=== PATIENT | female | born 1985 | race Two or more races ===

== ENCOUNTER 2020-02-18 01:42 | Emergency (ER) | payer SELFPAY ==
[~2020-02-18] VITALS: Ht 154.9 cm; Wt 65.0 kg
--- NOTE | 2020-02-18 02:23 | NUR ---
PATIENT INTERVIEW COMPLETED USING CLIENT EXPERIENCE ADMINISTRATOR [id number]: PATIENT STATED THAT SHE CAME TO THE HOSPITAL BECAUSE SHE "FEELS ANGRY" AND STARTED TEARING UP HER APARTMENT. PATIENT DENIES HI AT THIS TIME. ADMITS TO SI WITH PLAN TO "CLEAN HOME, WORK IN WORK". PATIENT STATED THAT SHE COULD POSSIBLY BE . DENIES FEVER, ADMITS TO COUGH LAST NIGHT. PATIENT DID NOT HAVE A SPONTANOUS COUGH DURING INTERVIEW. SPOKE WITH PROVIDER. PATIENT WILL BE PLACED ON LEGAL HOLD STARTING TIME @ 4435
[2020-02-18 02:44] LABS: BASOPHILS # (AUTO) 0.05 x10^3/uL (0-0.1); BASOPHILS % (AUTO) 1 % (0-1); EOSINOPHILS # (AUTO) 0.28 x10^3/uL (0-0.4); EOSINOPHILS % (AUTO) 4 % (1-7); LYMPHOCYTES # (AUTO) 2.24 x10^3/uL (1-3.4); LYMPHOCYTES % (AUTO) 29 % (22-44); MD NO; MEAN CORPUSCULAR HEMOGLOBIN 25.8 pg (27.0-34.8); MEAN CORPUSCULAR HGB CONC 32.7 g/dL (32.4-35.8); MEAN CORPUSCULAR VOLUME 78.8 fL (80-100); MEAN PLATELET VOLUME 8.1 fL (7.4-10.4); MONOCYTES # (AUTO) 0.63 x10^3/uL (0.2-0.8); MONOCYTES % (AUTO) 8 % (2-9); NEUTROPHILS # (AUTO) 4.56 x10^3/uL (1.8-6.8); NEUTROPHILS % (AUTO) 59 % (42-75); PLATELET COUNT 393 x10^3/uL (130-400); RED BLOOD COUNT 4.36 x10^6/uL (3.82-5.3); RED CELL DISTRIBUTION WIDTH 19.3 % (9.6-15.2)
[2020-02-18 02:51] LABS: ALBUMIN 3.4 g/dL (3.4-5.0); ANION GAP 9 mmol/L (5-15); CALCIUM 8.6 mg/dL (8.5-10.1); CHLORIDE 107 mmol/L (98-107)
[2020-02-18 02:57] LABS: ALANINE AMINOTRANSFERASE 26 U/L (12-78); ALKALINE PHOSPHATASE 65 U/L (45-117); BILIRUBIN,TOTAL 0.5 mg/dL (0.2-1.0); CREATININE 1.01 mg/dL (0.55-1.02); TOTAL PROTEIN 7.6 g/dL (6.4-8.2)
[2020-02-18 03:00] LABS: SALICYLATE LEVEL < 1.7 mg/dL (2.8-20.0)
[2020-02-18 03:20] LABS: FREE T4 (FREE THYROXINE) 1.37 ng/dL (0.76-1.46)
--- NOTE | 2020-02-18 03:30 | NUR ---
PATIENT RESTING IN BED, EVEN-UNLABORED RESPIRATIONS. NO NOTED NEEDS AT THIS TIME. WILL CONTINUE TO MONITOR.
--- NOTE | 2020-02-18 04:39 | NUR ---
PATIENT RESTING IN BED, NO NOTED NEEDS AT THIS TIME. WILL CONTINUE TO MONITOR.
--- NOTE | 2020-02-18 05:55 | NUR ---
REPORT FROM MORAIMA PINO. PT RESTING. EVEN RISE AND FALL OF CHEST OBSERVED. ROOM SECURED.
--- NOTE | 2020-02-18 05:56 | NUR ---
report given to александр mayer
--- NOTE | 2020-02-18 06:45 | NUR ---
ADMITTING ATTEMPTED TO GET PTS CORRECT NAME. PT SAID HER NAME IS SHIRA AND SHE HAS NO LAST NAME AND HER BIRTHDAY IS TODAY. MD UPDATED WITH THIS INFORMATION. PT RSSTING WITH EYES CLOSED. ROOM SECURED. SITTE REQUESTED FROM HOUSE SUP. UA STILL NEEDED
--- NOTE | 2020-02-18 07:01 | NUR ---
RECEIVED REPORT FROM AME MULLIGAN RN. PT RESTING ON ANICETOCRICKET. ALXE. ROOM SECURED. NO SITTER AT BEDSIDE. THIRD MILLER NOTIFIED. PT TO BE MOVED TO ROOM 3 ONCE AVAILABLE FOR SITTER PURPOSES.
--- NOTE | 2020-02-18 07:27 | NUR ---
PT UNABLE TO MOVE TO ROOM 3 A THIS TIME. SITTER PROVIDED. PT RESTING ON GURNEY. NADN. ROOM REMAINS SECURE. SITTER AWARE OF NEED FOR UA. UA CUP LEFT W/ SITTER.
--- NOTE | 2020-02-18 07:40 | NUR ---
ATTEMPTED TO GET PT'S FIRST AND LAST NAME WELL OF W/O SUCCESS. WHEN ASKING PT HER NAME STATES IT IS SHIRA. THIS RN ASKED PT HOW SHE SPELT HER NAME. PT RESPONSE "I DON'T KNOW". ASKED PT IF SHE KNEW WHAT HER BIRTHDAY IS AND SHE SAID YES AND WHEN ASKED WHAT HER BIRTHDATE WAS PT RESPONSE "I DON'T KNOW". PT REFUSING TO MAKE EYE CONTACT. ASKED PT IF SHE NEEDED TO USE RESTROOM. PT DENIES NEED FOR RESTROOM AT THIS TIME. PT PROVIDED W/ CUP OF WATER.
--- NOTE | 2020-02-18 07:55 | NUR ---
BREAKFAST TRAY PROVIDED FOR PT.
--- NOTE | 2020-02-18 08:59 | NUR ---
PT RESTING ON GURROBB. ALEX. SITTER REMAINS AT BEDSIDE. ROOM REMAINS SECURE. PT CONTINUES TO REFUSE TO ANSWER QUESTIONS. PT NOTED TO HAVE BLANKET BUNDLED UP LIKE SHE IS HOLDING A BABY. PT CRADLING BABY AND STARING AT IT AND SMILING.
--- NOTE | 2020-02-18 10:50 | NUR ---
UA COLLECTED, LABELED AND WALKED TO LAB.
--- NOTE | 2020-02-18 10:55 | NUR ---
ERP DR. SIERRA NOTIFIED OF PT TEMP. NEW ORDER FOR TYLENOL 650 MG PO ONCE.
[2020-02-18] MEDS ORDERED: ACETAMINOPHEN 325 MG TABLET ONE ×2 (10:56→13:21)
--- NOTE | 2020-02-18 10:58 | NUR ---
PT REFUSED TYLENOL FOR FEVER. PT EDUCATED ON NEED TO REDUCE FEVER. PT CONTINUES TO REFUSE TYLENOL DESPITE EDUCATION.
[2020-02-18] MEDS ORDERED: ACETAMINOPHEN 325 MG TABLET PO ONE (11:00)
[2020-02-18 11:19] LABS: AMPHETAMINE SCREEN, URINE Negative (Negative); CANNABINOID SCREEN, URINE Negative (Negative); COCAINE SCREEN, URINE Negative (Negative); METHADONE SCREEN, URINE Negative (Negative); OPIATE SCREEN, URINE Negative (Negative)
[2020-02-18 11:21] LABS: BARBITURATE SCREEN, URINE Negative (Negative); BENZODIAZEPINE SCREEN, URINE Negative (Negative)
--- NOTE | 2020-02-18 11:28 | NUR ---
SPOKE W/ ERP DR. SIERRA IN REGARDS TO PT TEMP AND SOURCE OF TEMP CAUSE. NEW ORDER FOR UA PER ERP.
[2020-02-18 11:56] LABS: MICROSCOPIC INDICATED
--- NOTE | 2020-02-18 12:41 | NUR ---
PT NOTED TO HAVE POSITIVE NITRATES IN URINE. ERP DR. SIERRA TO BE NOTIFIED.
--- NOTE | 2020-02-18 12:48 | NUR ---
LUNCH BREAK NOTE: ANTIBIOTICS REQUESTED OF DR. SIERRA FOR POSSIBLE UTI.
[2020-02-18] MEDS ORDERED: HALOPERIDOL 5 MG TABLET PO PRN (13:00)
[2020-02-18] MEDS ORDERED: HALOPERIDOL 5 MG TABLET ONE (13:21)
--- NOTE | 2020-02-18 13:28 | NUR ---
PT PROVIDED W/ SI LUNCH TRAY. PT MEDICATED PER SEP. REFUSED TYLENOL. TEMP NOTED TO BE 99.1
--- NOTE | 2020-02-18 13:29 | NUR ---
PER ERP DR. SIERRA NO NEED TO START PO ABX AT THIS TIME.
--- NOTE | 2020-02-18 13:55 | NUR ---
REPORT GIVEN TO ALVAREZ ROSS.
--- NOTE | 2020-02-18 14:44 | NUR ---
Pt resting in bed with eyes closed, resp even and unlabored, NADN. Room is secured, sitter within eyesight of pt, all safety measures observed.
--- NOTE | 2020-02-18 15:17 | NUR ---
Report recieved from ALVAREZ Marshall. Plan of care discussed. Patient changed into gown with need for assistance from secuirty, belongings placed in labeled bag and placed in locked storage. Room secured, sitter at door for safety.
--- NOTE | 2020-02-18 15:36 | NUR ---
Mis, psych RECORDING STUDIO INTERN in room for eval.
[2020-02-18] MEDS ORDERED: HALOPERIDOL 5 MG/ML ONE (16:03)
[2020-02-18] MEDS: HALOPERIDOL 5 MG/ML IM PRN (16:06)
--- NOTE | 2020-02-18 16:07 | NUR ---
Patient began yelling and pacing in room stating she needs to go home. Patient educted that she is on a legal hold and needs to stay here. With help from ALVAREZ Hinkle and ALVAREZ Smiley, patient medicated per emar for agitation/distress
--- NOTE | 2020-02-18 16:16 | NUR ---
PER PARDEEP, PT WAS PICKED UP AT [id number], [place] [facility]? ATTEMPTED TO CALL. LEFT MESSAGE
--- NOTE | 2020-02-18 17:25 | NUR ---
Patient resting in bed, respirations even and unlabored. Sitter at door for safety, room secured. Call light in reach, monitoring in place. Patient is to be admitted Addendum: 02/18/20 at 1829 by CHEO Correction, this patient is not to be admitted at this time. Wrong note on patient
--- NOTE | 2020-02-18 18:29 | NUR ---
Patient resting in bed, respirations even and unlabored. Sitter at door for safety, room secured. Call light in reach, monitoring in place.
--- NOTE | 2020-02-18 18:51 | NUR ---
REPORT FROM JLUIS PINO ASSUMING CARE OF PT
--- NOTE | 2020-02-18 20:06 | NUR ---
PT STILL SLEEPING ON [facility] SITTER IN VIEW FOR SAFETY
--- NOTE | 2020-02-18 21:44 | NUR ---
PT STILL RESTING RESP EVEN AND UNLABORED NADN. SITTER IN VIEW
--- NOTE | 2020-02-18 22:55 | NUR ---
PT RESTING STILL EYES CLOSED ALEX LEONARD IN [facility] FOR SAFETY
--- NOTE | 2020-02-18 23:30 | NUR ---
PT RESTING NO NEEDS AT THIS TIME, RESP EVEN AND UNLABORED ALEX SITTER IN HALLWAY FOR SAFETY
--- NOTE | 2020-02-19 00:45 | NUR ---
PT RESTING ON TIKA JOHNSON. RESP EVEN AND UNLABORED
[2020-02-19] MEDS ORDERED: DIPHENHYDRAMINE 25 MG CAPSULE ONE (01:29)
[2020-02-19] MEDS ORDERED: DIPHENHYDRAMINE 25 MG CAPSULE PO ONE (01:30)
--- NOTE | 2020-02-19 01:37 | NUR ---
PT AWAKE, ASSESSMENT COMPLETED, PT ABLE TO STATE HER NAME IS "SHIRA" WHEN ASKED ABOUT HER BIRTHDAY PT STS "TODAY" PT KNOWS IT IS 2019 AND THAT ITS EITHER END OF JANUARY OR FEBRUARY BUT PT DOES NOT KNOW WHERE SHE IS HOWEVER SAYS SHE IS HERE BECAUSE OF VOICES. SHE DENIES SI/ HI SHE STATES VOICES JUST TALK AND TALK AND SAY "SHIRA SILVA". PT C/O ITCHING TO R BACK PT MEDICATED PER SEP FOR THIS AND IS CALM AND COOPERATIVE AT THIS TIME. SITTER REMAINS IN HALLWAY FOR SAFETY AND MONITORING
--- NOTE | 2020-02-19 02:40 | NUR ---
PT RESTING SITTER IN JAMES FOR SAFETY
--- NOTE | 2020-02-19 04:08 | NUR ---
PT RESTING RESP EVEN AND UNLABORED. SITTER IN SIGHT NO NEEDS AT THIS TIME
--- NOTE | 2020-02-19 05:21 | NUR ---
PT AWAKE IN ROOM SITTING ON BED ASKING "I GO HOME NOW" RN ASKED PT WHERE SHE LIVES AND ORIENTATION QUESTIONS, PT ABLE TO SAY HER NAME IS SHIRA BIRTHDAY IS TODAY BUT DOES NOT KNOW WHERE WE ARE BUT KNOWS WHY SHE IS HERE
[2020-02-19] MEDS: HALOPERIDOL 5 MG/ML IM PRN ×2 (05:55→13:00)
[2020-02-19] MEDS ORDERED: HALOPERIDOL 5 MG/ML ONE ×2 (06:09→12:54)
--- NOTE | 2020-02-19 07:00 | NUR ---
Mariely al in [facility] - 02/19/20 at 1154 by JABARI RE REPORT ARIS RESTING SITTER IN THE JAMES
--- NOTE | 2020-02-19 07:00 | NUR ---
REC BS REPORT PT UP IN ROOM SITTER IN THE JAMES
--- NOTE | 2020-02-19 09:00 | NUR ---
[facility]
--- NOTE | 2020-02-19 09:02 | NUR ---
Break RN note: Pt ambulatory out of her room and down the isaac. Pt advised that she must remain in her room unless accompanied by a staff member. Pt requesting water. Pt ambulatory back to her room. Pt provided with water. Room remains secured, sitter within eyesight of pt, all safety measures observed.
--- NOTE | 2020-02-19 10:00 | NUR ---
REDIRECTING PT BACK TO THE ROOM MULTI TIME PT COOPERATES
--- NOTE | 2020-02-19 11:53 | NUR ---
PT CONTINUES TO REFUSE MEDS
--- NOTE | 2020-02-19 15:04 | NUR ---
christal blue and to the bs per pt has long standing psy hx christal to talk with WENDI
[2020-02-19] MEDS ORDERED: LORazepam 1MG TABLET PO PRN (15:30)
[2020-02-19] MEDS: CITALOPRAM 10 MG TABLET PO SCH (15:30)
--- NOTE | 2020-02-19 15:49 | NUR ---
BREAK RN:PATIENT MEDICATED PER EMAR, COMPLIANT AND TOLERATED WELL
--- NOTE | 2020-02-19 17:01 | NUR ---
PACKET FAXED TO [facility]
--- NOTE | 2020-02-19 18:55 | NUR ---
REPORT FROM ALVAREZ MILLARD. PT CARE RESPONSIBLITIES ASSUMED. SITTER CONTINUES IN DIRECT LINE OF SIGHT.
[2020-02-19] MEDS: TRAZODONE 100MG TABLET PO SCH (21:00)
[2020-02-19] MEDS: RISPERIDONE 1 MG TABLET PO SCH (21:00)
--- NOTE | 2020-02-19 23:48 | NUR ---
PT SLEEPING IN BED, NAD NOTED, SITTER IN DIRECT LINE OF SIGHT.
--- NOTE | 2020-02-20 01:15 | NUR ---
PT CONTINUES SLEEPING, NAD NOTED, SITTER CONTINUES IN DIRECT LINE OF SIGHT.
--- NOTE | 2020-02-20 04:22 | NUR ---
PT CONTINUES SLEEPING SOUNDLY. NADN. SITTER IN DIRECT LINE OF SIGHT.
--- NOTE | 2020-02-20 06:44 | NUR ---
PT CONTINUES SLEEPING, SITTER CONTINUES IN DIRECT LINE OF SIGHT. NAD NOTED.
--- NOTE | 2020-02-20 06:53 | NUR ---
BEDSIDE REPORT FROM JLUIS PINO. PT SLEEPING IN [facility] WITH SITTER AT BEDSIDE. [facility] TRANSFER.
--- NOTE | 2020-02-20 07:15 | NUR ---
requested hospital bed
--- NOTE | 2020-02-20 07:52 | NUR ---
PT GIVEN BREAKFAST TRAY, PT DECLINING FOOD AT THIS TIME. LEFT TRAY AT BEDSIDE. BEDSIDE TRAY REMOVED FOR SAFETY. PT RESTING IN GURNEY WITH SITTER AT BEDSIDE. DENIES PHYSICAL COMPLAINTS, SEE ASSESSMENT.
[2020-02-20] MEDS ORDERED: CITALOPRAM 20 MG TABLET ONE (08:04)
[2020-02-20] MEDS ORDERED: RISPERIDONE 2 MG TABLET ONE (08:04)
[2020-02-20] MEDS: RISPERIDONE 1 MG TABLET PO SCH ×2 (08:12→20:46)
[2020-02-20] MEDS: CITALOPRAM 10 MG TABLET PO SCH (08:12)
--- NOTE | 2020-02-20 08:13 | NUR ---
PT MEDICATED PER MAR, CALM AND COOPERATIVE AT THIS TIME.
--- NOTE | 2020-02-20 09:10 | NUR ---
PT SLEEPING IN GURNEY WITH SITTER AT BEDSIDE, CALM AND COOPERATIVE AT THIS TIME. HOSPITAL BED STILL NOT HERE
--- NOTE | 2020-02-20 10:03 | NUR ---
[facility] CALLED AGAIN FOR BED, VM FULL. WILL TRY AGAIN
--- NOTE | 2020-02-20 11:03 | NUR ---
PT RESTING IN GURNEY WITH SITTER AT BEDSIDE, NO NEEDS AT THIS TIME. LUNCH TRAY ORDERED.
--- NOTE | 2020-02-20 12:14 | NUR ---
TASK RN: WENDI ACOSTA TALKING WITH PT AND EVALUATING HOW SHE IS FEELING TODAY
--- NOTE | 2020-02-20 12:57 | NUR ---
PT GIVEN LUNCH TRAY
--- NOTE | 2020-02-20 13:15 | NUR ---
REPORT RECEIVED FROM EVA PINO.
--- NOTE | 2020-02-20 14:08 | NUR ---
PT RESTING IN [facility]. RESPS EVEN AND UNLABORED. SITTER MONITORING FROM HALLWAY FOR SAFETY. ROOM REMAINS SECURE.
--- NOTE | 2020-02-20 14:11 | NUR ---
REQUESTED HOSPITAL BED AT THIS TIME AGAIN.
--- NOTE | 2020-02-20 14:37 | NUR ---
HOSPITAL BED IN ROOM. PT RESTING IN HOSPITAL BED. PT'S AOX4. RESPS EVEN AND UNLABORED. SITTER MONITORING FROM HALLWAY FOR SAFETY. ROOM REMAINS SECURE.
--- NOTE | 2020-02-20 16:02 | NUR ---
PT SLEEPING IN HOSPITAL BED. RESPS EVEN AND UNLABORED. SITTER MONITORING FROM HALLWAY FOR SAFETY. ROOM REMAINS SECURE.
--- NOTE | 2020-02-20 17:06 | NUR ---
DIET TRAY ORDERED AT THIS TIME.
--- NOTE | 2020-02-20 17:45 | NUR ---
PT AMB TO BR AND BACK TO ROOM WITH STEADY GAIT.
--- NOTE | 2020-02-20 17:55 | NUR ---
DINNER TRAY PROVIDED AT THIS TIME.
--- NOTE | 2020-02-20 18:57 | NUR ---
RECEIVED BEDSIDE REPORT FROM ALVAREZ PARDO. PT SITTING UP IN BED, NO SIGNS OF DISTRESS, REMAINS IN VIEW OF THE SITTER. WILL CONTINUE TO MONITOR.
[2020-02-20 19:29] VITALS: BP 108/74
--- NOTE | 2020-02-20 19:31 | NUR ---
PT DENIES SI/HI. STATES SHE DOESN'T KNOW WHY SHE'S HERE OTHER THAN SHE "ARGUED WITH HER TOYS YESTERDAY." DENIES ANY COMPLAINTS, ALL NEEDS MET AT THIS TIME, REMAINS IN VIEW OF THE SITTER.
[2020-02-20] MEDS ORDERED: TRAZODONE 100MG TABLET ONE (20:13)
[2020-02-20] MEDS: TRAZODONE 100MG TABLET PO SCH (20:46)
--- NOTE | 2020-02-20 21:36 | NUR ---
PT SLEEPING, RESPIRATIONS EVEN AND UNLABORED, REMAINS IN VIEW OF THE SITTER.
--- NOTE | 2020-02-20 22:35 | NUR ---
[facility], RN, MD ORTIZ.
--- NOTE | 2020-02-20 22:47 | NUR ---
PT UPDATED ON POC, ALL QUESTIONS ANSWERED AT THIS TIME.
== END 2020-02-21 01:10 ==
LOC: ED 02-19 14:41
DX: F32.1 Major depressive disorder, single episode, moderate (principal); F23 Brief psychotic disorder; F22 Delusional disorders
CPT/HCPCS: 36415; 80053; 80307; 81001; 84439; 84443; 84703; 85025; 87077; 87086; 87186; 96372; 99285; J1630; Q0163

== ENCOUNTER 2020-05-09 02:02 | Emergency (ER) | payer SELFPAY ==
[~2020-05-09] VITALS: Ht 162.6 cm; Wt 110.0 kg
--- NOTE | 2020-05-09 02:20 | NUR ---
34 year old female to [facility] for abdominal pain x 1 month and bilateral flank pain. LMP unknown, G1, P1, denies dysuria, vag bleeding, diarrhea, vomiting, indigestion, fever, chills, or body aches. She also denies PMHx. VSS.
--- NOTE | 2020-05-09 02:26 | NUR ---
phone number No name given
[2020-05-09 02:48] LABS: BASOPHILS % (AUTO) 1 % (0-1); EOSINOPHILS % (AUTO) 2 % (1-7); LYMPHOCYTES % (AUTO) 14 % (22-44); MD NO; MEAN CORPUSCULAR HEMOGLOBIN 24.2 pg (27.0-34.8); MEAN CORPUSCULAR HGB CONC 32.4 g/dL (32.4-35.8); MEAN PLATELET VOLUME 7.6 fL (7.4-10.4); MONOCYTES % (AUTO) 8 % (2-9); NEUTROPHILS % (AUTO) 75 % (42-75); PLATELET COUNT 397 x10^3/uL (130-400); RED CELL DISTRIBUTION WIDTH 16.1 % (9.6-15.2)
[2020-05-09 02:59] LABS: ALANINE AMINOTRANSFERASE 22 U/L (12-78); ALBUMIN 3.2 g/dL (3.4-5.0); ANION GAP 6 mmol/L (5-15); CALCIUM 8.4 mg/dL (8.5-10.1); CHLORIDE 105 mmol/L (98-107); CREATININE 1.07 mg/dL (0.55-1.02)
[2020-05-09 03:04] LABS: ALKALINE PHOSPHATASE 106 U/L (45-117); BILIRUBIN,TOTAL 0.2 mg/dL (0.2-1.0); TOTAL PROTEIN 7.3 g/dL (6.4-8.2)
[2020-05-09 03:06] LABS: MICROSCOPIC AUTO
[2020-05-09 04:08] VITALS: BP 132/88
== END 2020-05-09 04:11 | disposition home or self-care (01) ==
LOC: ED 02:57
DX: N30.00 Acute cystitis without hematuria (principal); R73.9 Hyperglycemia, unspecified; R10.31 Right lower quadrant pain; R10.32 Left lower quadrant pain; R11.0 Nausea
CPT/HCPCS: 36415; 80053; 81001; 83690; 84703; 85025; 87077; 87086; 87186; 99283

== ENCOUNTER 2020-10-09 17:58 | Emergency (ER) | payer OTHER ==
[~2020-10-09] VITALS: Ht 162.6 cm; Wt 101.0 kg
--- NOTE | 2020-10-09 18:15 | NUR ---
PT BIB [facility] [place]. PER [employer] POLICE THE PT WAS WANDERING AROUND THE AIRPPORT SAYING SHE WANTED TO GO TO [facility]. PT TOLD EMS SHE WAS HAVING ABD PAIN AND NAUSEA. PT A&O TO PERSON AND SITUATION (KNOWS SHE IS IN THE HOSPITAL) ONLY. Addendum: 10/10/20 at 1637 by SELINA PT CAME OUT OF ROOM YELLING, SLAMMED DOOR AND AGITATED. MEDICATED PER ORDERS W ZIPRASIDONE.
[2020-10-09 18:43] LABS: BASOPHILS % (AUTO) 0 % (0-1); EOSINOPHILS % (AUTO) 2 % (1-7); LYMPHOCYTES % (AUTO) 15 % (22-44); MEAN CORPUSCULAR HEMOGLOBIN 23.3 pg (27.0-34.8); MEAN CORPUSCULAR HGB CONC 31.9 g/dL (32.4-35.8); MEAN PLATELET VOLUME 7.7 fL (7.4-10.4); MONOCYTES % (AUTO) 8 % (2-9); NEUTROPHILS % (AUTO) 75 % (42-75); PLATELET COUNT 381 x10^3/uL (130-400); RED BLOOD COUNT 4.68 x10^6/uL (3.82-5.3); RED CELL DISTRIBUTION WIDTH 18.9 % (9.6-15.2)
[2020-10-09 18:49] LABS: MD NO
--- NOTE | 2020-10-09 18:49 | NUR ---
BEDSIDE REPORT FROM STUART PINO, PT CARE TRANSFERRED AT THIS TIME. PT NAD, UP TO RESTROOM AT THIS TIME. AMBULATES WITH A SMOOTH AND STEADY GAIT, DENIES ADDITIONAL QUESTIONS OR NEEDS SITTER IN LINE OF SIGHT, WCSAM.
[2020-10-09 18:50] LABS: ALBUMIN 3.4 g/dL (3.4-5.0); ANION GAP 9 mmol/L (5-15); CALCIUM 8.6 mg/dL (8.5-10.1); CHLORIDE 102 mmol/L (98-107)
[2020-10-09 18:55] LABS: ALANINE AMINOTRANSFERASE 31 U/L (12-78); ALKALINE PHOSPHATASE 110 U/L (45-117); BILIRUBIN,TOTAL 0.2 mg/dL (0.2-1.0); CREATININE 0.97 mg/dL (0.55-1.02); TOTAL PROTEIN 7.3 g/dL (6.4-8.2)
[2020-10-09 18:56] LABS: SALICYLATE LEVEL < 1.7 mg/dL (2.8-20.0)
--- NOTE | 2020-10-09 19:06 | NUR ---
pt unable to obtain urine sample at this time. nad, resting on gurney, will attempt to obtain urine sample again in 15 minutes. wcbahman.
--- NOTE | 2020-10-09 20:09 | NUR ---
LATE ENTRY DUE TO CARE: DURING LAST HOUR RN COLLECTED BELONGINGS 2/2 BAGS AND PLACED IN LOCKER, UA OBTAINED AND SENT TO LAB, PT PLACED ON LEGAL, ROOM SECURED, SITTER IN LINE OF SIGHT, PT RESTING ON GURNEY CRYING, RN USED FAMILY NURSE PRACTITIONER SERVICES TO INFORM PT OF LEGAL AND PLAN OF CARE, PT BEGAN SCREAMING AND CRYING AFTER EXPLANATION COMPLETE. PT NAD, SITTER IN LINE OF SIGHT, RENE. RN TO ATTEMPT TO REACH FAMILY FOR MED REC.
[2020-10-09 20:18] LABS: MICROSCOPIC AUTO
[2020-10-09] MEDS ORDERED: LORazepam 1MG TABLET ONE (20:19)
[2020-10-09 20:27] LABS: AMPHETAMINE SCREEN, URINE Negative (Negative); BARBITURATE SCREEN, URINE Negative (Negative); BENZODIAZEPINE SCREEN, URINE Negative (Negative); CANNABINOID SCREEN, URINE Negative (Negative); COCAINE SCREEN, URINE Negative (Negative); METHADONE SCREEN, URINE Negative (Negative); OPIATE SCREEN, URINE Negative (Negative)
[2020-10-09] MEDS ORDERED: LORazepam 1MG TABLET PO ONE (20:30)
[2020-10-09] MEDS ORDERED: ZIPRASIDONE 20 MG INJ IM ONE ×4 (20:51→22:02)
--- NOTE | 2020-10-09 21:00 | NUR ---
late entry d/t pt care: pt becoming increasingly aggitated, walked out of room refusing to stop despite attempts at staff redirection, pt shoving staff out of path attempting to run around er, pt making laps yelling at RN "No, No, No". pt body language aggressive towards staffing, lunging towards them. pt assisted back to room with security, pt placed on spo2/bp/ecg monitoring and medicated per mar. erp aware of situation, verbal orders received, wctm.
--- NOTE | 2020-10-09 22:18 | NUR ---
pt still screaming out on marietta, states she has to pee, rn offered both pure wick and bed sood, pt refused both, and then continued to yell at rn "i have to pee, i have to pee, i have to pee" pt then proceded to threatening staff, shanda. L2K
[2020-10-09] MEDS ORDERED: CEFDINIR 300 MG CAPSULE PO ONE (22:30)
--- NOTE | 2020-10-09 23:00 | NUR ---
late entry d/t pt careL pt taken to shower, supervised by rn, pt nad, changed into clean clothing, moved to hospital bed instead of gurney, provided water for comfort, lights dimmed for comfort, pt back to room after shower, sitter in line of sight, room secured. wctm. L2K
[2020-10-09] MEDS ORDERED: CEFDINIR 300 MG CAPSULE ONE (23:05)
[2020-10-09] MEDS ORDERED: FOSFOMYCIN 3 GM PACKET ONE (23:38)
[2020-10-10] MEDS ORDERED: FOSFOMYCIN 3 GM PACKET PO ONE
--- NOTE | 2020-10-10 | NUR ---
pt appears more comfortable at this time. resting on hospital bed, provided snacks for comfort, medicated per mar, nad, denies additional questions or needs at this time, room secured, sitter in line of sight, wctm. L2K
--- NOTE | 2020-10-10 00:48 | NUR ---
TP: faxed pt packet to psych facilities.
--- NOTE | 2020-10-10 01:23 | NUR ---
Floresita from [facility] states that with patients insurance the patient would have to pay out of pocket to go to their hospital.
--- NOTE | 2020-10-10 01:38 | NUR ---
pt resting on gurney, nad, eyes closed, even and unlabored respirations, sitter in line of sight, room secured. wctm. L2K
--- NOTE | 2020-10-10 01:45 | NUR ---
U denied referral, inappropriate insurance coverage.
--- NOTE | 2020-10-10 03:08 | NUR ---
MANUFACTURING ENGINEER: [facility] CALLED AND STATED THEY WILL NOT BE TAKING ANY NEW PATIENT'S TONIGHT BUT THEY WILL RE-EVAL IN THE AM AND CALL US BACK.
--- NOTE | 2020-10-10 03:11 | NUR ---
pt resting on hospital bed, nad, appears comfortable, briefly up and ambulated to restroom with a smooth and steady gait the back to bed, lights off for comfort, even and unlabored respirations, sitter in line of sight, room secured, wctm. L2K
--- NOTE | 2020-10-10 04:38 | NUR ---
pt resting on hospital bed, nad, appears comfortable, room secured, sitter in line of sight, no other changes in condition, meal tray ordered, wctm. L2K
--- NOTE | 2020-10-10 06:39 | NUR ---
pt resting on marietta, damon, no change in condition, sitter in line of sight, room secured. wctm.
--- NOTE | 2020-10-10 06:39 | NUR ---
[facility] callled, they do not take pts insurance so will not take her.
--- NOTE | 2020-10-10 06:41 | NUR ---
bedside report to Axel PINO, pt care transferred at this time.
[2020-10-10] MEDS ORDERED: DIPHENHYDRAMINE 50 MG/ML, 1ML ONE (06:52)
[2020-10-10] MEDS ORDERED: HALOPERIDOL 5 MG/ML ONE ×2 (06:52→18:44)
[2020-10-10] MEDS ORDERED: LORazepam 2 MG/ML, 1ML ONE (06:53)
[2020-10-10] MEDS: HALOPERIDOL 5 MG/ML IM PRN ×2 (06:56→18:46)
[2020-10-10] MEDS: LORazepam 2 MG/ML, 1ML IM PRN (06:57)
[2020-10-10] MEDS ORDERED: DIPHENHYDRAMINE 50 MG/ML, 1ML IM ONE (07:00)
--- NOTE | 2020-10-10 07:05 | NUR ---
BEDSIDE REPORT RECEIVED FROM ALVAREZ ORNELAS FOR TRANSFER OF PATIENT CARE. PATIENT AMBULATED TO BATHROOM WITH STEADY GAIT, AFTER USING BATHROOM PATIENT TRIED LEAVING UNABLE TO BE REDIRECTED BY SITTER. NOC RN CALLED SECURITY, ANGELI NOTIFIED, MEDICATION ORDERED AND GIVEN. PATIENT NOW RESTING IN HOSPITAL BED, SUICIDE PRECAUTIONS IN PLACE, SITTER IN DOORWAY.
--- NOTE | 2020-10-10 07:39 | NUR ---
PATIENT AMBULATED TO BATHROOM WITH STEADY GAIT, ASSISTED BACK TO ROOM BY SITTER, PATIENT COOPERATIVE, SUICIDE PRECAUTIONS IN PLACE.
--- NOTE | 2020-10-10 08:18 | NUR ---
BREAKFAST TRAY PROVIDED.
--- NOTE | 2020-10-10 08:32 | NUR ---
PATIENT AMBULATED TO BATHROOM WITH STEADY GAIT AND DIRECTED BACK TO ROOM BY SITTER.
--- NOTE | 2020-10-10 10:02 | NUR ---
PATIENT LAYING IN HOSPITAL BED WITH EYES CLOSED, RESP EVEN AND UNLABORED, SUICIDE PRECAUTIONS IN PLACE, SITTER IN DOORWAY.
--- NOTE | 2020-10-10 11:23 | NUR ---
LUNCH TRAY ORDERED.
--- NOTE | 2020-10-10 12:10 | NUR ---
PEANUT BUTTER AND JELLY SANDWICH PROVIDED TO PATIENT, SUICIDE PRECAUTIONS IN PLACE, SITTER IN LINE OF SIGHT.
--- NOTE | 2020-10-10 12:21 | NUR ---
LUNCH TRAY PROVIDED TO PATIENT.
--- NOTE | 2020-10-10 13:13 | NUR ---
REPORT FROM WILLI
--- NOTE | 2020-10-10 13:42 | NUR ---
MEDICATIONS REQUEST FROM PHARMACY, PT LYING ON GURNEY. SITTER PRESENT
[2020-10-10] MEDS: RISPERIDONE 1 MG TABLET PO SCH ×3 (13:56→21:10)
[2020-10-10] MEDS: CITALOPRAM 10 MG TABLET PO SCH ×2 (13:56→21:10)
--- NOTE | 2020-10-10 14:10 | NUR ---
PT REFUSING TO TAKE MEDS, PT STATES "THE SALES SPECIALIST DOESNT WANT ME TO TAKE MEDS". RN EDUCATED ABOUT MEDS, PT STILL REFUSING
--- NOTE | 2020-10-10 15:30 | NUR ---
PT AMBULATED TO BATHROOM. SITTER PRESENT
[2020-10-10] MEDS ORDERED: ZIPRASIDONE 20 MG INJ IM ONE (16:30)
--- NOTE | 2020-10-10 17:34 | NUR ---
MEAL TRAY ORDERED. SITTER PRESENT. PT IS CALM AND COOPERATIVE
--- NOTE | 2020-10-10 18:01 | NUR ---
PT GIVEN MEAL TRAY.
--- NOTE | 2020-10-10 18:34 | NUR ---
TRIED TO ENCOURAGE PT TAKE ORAL MEDS, REFUSING AT THIS TIME
--- NOTE | 2020-10-10 18:48 | NUR ---
PT STARTED SCREAMING IN HALLWAY UNCONSOLIBLE AND NOT GOING BACK TO ROOM. SECURITY ESCORTED PATIENT TO ROOM. MEDICATED WITH HALOPERIDOL PER ORDERS. SECURITY AT BEDSIDE FOR SAFETY.
--- NOTE | 2020-10-10 18:54 | NUR ---
REPORT FROM ANABEL PINO. PT IN BED AND STILL SCREAMING BUT NOT ATTEMPTING TO LEAVE ROOM. SITTER IN VIEW OF PT.
--- NOTE | 2020-10-10 18:56 | NUR ---
REPORT TO ESE
--- NOTE | 2020-10-10 19:58 | NUR ---
PT RESTING WITH NO NEEDS AT THIS TIME. SITTER IN VIEW OF PT
--- NOTE | 2020-10-10 20:53 | NUR ---
REPORT TO JOVANNA PINO
[2020-10-10] MEDS ORDERED: TRAZODONE 100MG TABLET PO SCH (21:00)
[2020-10-10] MEDS ORDERED: RISPERIDONE 2 MG TABLET ONE (21:05)
[2020-10-10] MEDS ORDERED: TRAZODONE 100MG TABLET ONE (21:05)
[2020-10-10] MEDS ORDERED: CITALOPRAM 20 MG TABLET ONE (21:05)
--- NOTE | 2020-10-10 21:16 | NUR ---
1ST CONTACT C PT. AMBULATORY TO RESTROOM C STEADY GAIT. MEDS PER MAR, TOLERATED WELL. SANDWICH & JUICE PROVIDED. DENIES ANY OTHER NEEDS. NAD. RR EVEN NON LABORED. SITTER OUTSIDE OF ROOM. WILL CTM.
--- NOTE | 2020-10-10 22:00 | NUR ---
PT AMBULATORY IN ROOM/HALLWAY. EASILY REDIRECTED BACK TO BED. NAD. SITTER OUTSIDE OF ROOM. WILL CTM.
--- NOTE | 2020-10-10 23:01 | NUR ---
PT TEARFUL IN ROOM/HALLWAY, REQUESTINIG BETSEY, STATES SHE NEEDS TO GET HER KEYS FOR HER DAUGHTER, ATTEMPTING TO REDIRECT PT BACK TO BED... SITTER REMAINS OUTSIDE OF ROOM. WILL ANISAM.
--- NOTE | 2020-10-11 | NUR ---
PT RESTING ON HOSPITAL BED, RR EVEN NON LABORED. SITTER OUTSIDE OF ROOM. WILL CTM.
--- NOTE | 2020-10-11 01:11 | NUR ---
PT AMBULATORY TO RESTROOM SEVERAL TIMES, STEADY GAIT. SITTER REMAINS OUTSIDE OF ROOM. WILL CTM.
[2020-10-11] MEDS ORDERED: HALOPERIDOL 5 MG/ML ONE (01:39)
[2020-10-11] MEDS: HALOPERIDOL 5 MG/ML IM PRN (01:44)
--- NOTE | 2020-10-11 01:45 | NUR ---
PT CLEANING THE BATHROOM DOOR, CRYING, USHERED BACK TO ROOM. GIVEN HALDOL IM PER SEP. SITTER OUT SIDE ROOM
--- NOTE | 2020-10-11 02:12 | NUR ---
PT RESTING ON HOSPITAL BED, RR EVEN NON LABORED, EYES OPEN. SITTER OUTSIDE OF ROOM. WILL CTM.
--- NOTE | 2020-10-11 03:08 | NUR ---
PT SLEEPING ON HOSPITAL BED, RR EVEN NON LABORED. NAD. SITTER OUTSIDE OF ROOM. WILL CTM.
--- NOTE | 2020-10-11 05:03 | NUR ---
bedside report from Mackenzie RN, pt care transferred to this rn at this time. nad, pt up pacing room and repeatedly walking to and from restroom. pt redirectable at this time. sitter in line of sight, room secured. wctm. L2K
--- NOTE | 2020-10-11 06:14 | NUR ---
pt sitting up on hospital bed, provided cheerios and milk for comfort, also provided new water cup with ice. pt denies additional needs at this time, crying and stating "i just want to go home". room secured, sitter in line of sight, shanda.
--- NOTE | 2020-10-11 06:54 | NUR ---
report to nicholas fountain, pt care transferred at this time.
--- NOTE | 2020-10-11 07:10 | NUR ---
REPORT REC'D FROM COORDINATOR VOLUNTEER SERVICES. PT SITTING UP IN BED, DECLINED ANY FOOD AT THIS TIME. SITTER AT DOOR.
[2020-10-11] MEDS ORDERED: HALOPERIDOL 5 MG TABLET ONE (07:30)
[2020-10-11] MEDS ORDERED: HALOPERIDOL 5 MG TABLET PO ONE (08:00)
[2020-10-11] MEDS ORDERED: RISPERIDONE 2 MG TABLET ONE ×2 (08:31→20:39)
[2020-10-11] MEDS ORDERED: CITALOPRAM 20 MG TABLET ONE (08:31)
--- NOTE | 2020-10-11 08:39 | NUR ---
MEAL TRAY DELIVERED. HALADOL CRUSHED AND PUT IN APPLE SAUCE.
[2020-10-11] MEDS: RISPERIDONE 1 MG TABLET PO SCH (09:21)
[2020-10-11] MEDS: CITALOPRAM 10 MG TABLET PO SCH (09:21)
--- NOTE | 2020-10-11 09:22 | NUR ---
MORNING MEDS CRUSHED AND PUT IN APPLESAUCE.
--- NOTE | 2020-10-11 10:40 | NUR ---
PT SLEEPING IN BED. SITTER AT DOOR.
--- NOTE | 2020-10-11 15:00 | NUR ---
REPORT FROM JANNY PINO
--- NOTE | 2020-10-11 15:39 | NUR ---
PT RESTING IN BED WATCHING TV. SI PRECAUTIONS IN PLACE, SITTER AT DOORWAY.
--- NOTE | 2020-10-11 17:00 | NUR ---
PT IN RESTING IN BED. SITTER AT DOORWAY, SI PRECAUTIONS IN PLACE.
--- NOTE | 2020-10-11 17:15 | NUR ---
mili damon and at bedside.
--- NOTE | 2020-10-11 18:33 | NUR ---
[facility] denied patient as they are not a provider for patients insurance.
--- NOTE | 2020-10-11 19:00 | NUR ---
pt standing in room. denies needs at this time sitter at doorway
[2020-10-11] MEDS: RISPERIDONE 2 MG TABLET PO SCH (20:42)
--- NOTE | 2020-10-11 20:46 | NUR ---
pt laying in gurney, resp even and unlabored. pt took pm medications, denying SI. sitter at doorway
--- NOTE | 2020-10-11 22:03 | NUR ---
BREAK RN: PT RESTING IN ROOM. SITTER AT DOOR. NO ACUTE DISTRESS NOTED. WILL CONTINUE TO MONITOR WHILE PRIMARY RN IS ON BREAK.
--- NOTE | 2020-10-11 22:25 | NUR ---
BREAK RN: REPORT GIVEN TO ALVAREZ JOLLEY
--- NOTE | 2020-10-11 23:21 | NUR ---
PT RESTING IN BED, RESP EVEN AND UNLABORED. SITTER AT DOORWAY
--- NOTE | 2020-10-12 00:44 | NUR ---
pt resting in gurney, resp even and unlabored. sitter at doorway
--- NOTE | 2020-10-12 01:45 | NUR ---
PT IN BATHTROOM DRY HEAVING OVER TOILET, ERP AWARE, PO ZOFRAN ORDERED.
[2020-10-12] MEDS ORDERED: ONDANSETRON ODT 4 MG ONE (01:49)
[2020-10-12] MEDS ORDERED: ONDANSETRON ODT 4 MG PO ONE (02:00)
--- NOTE | 2020-10-12 02:18 | NUR ---
PT BACK IN BED. NO VOMITING AT THIS TIME.
--- NOTE | 2020-10-12 03:04 | NUR ---
REPORT GIVEN TO JACOB PINO
--- NOTE | 2020-10-12 04:00 | NUR ---
PT CONSTANTLY COMING OUT OF ROOM ASKING FOR FOOD. PT INFORMED OF MEAL TIMES. PT LAID ON THE GROUD IN HALLWAY DRAMATICALLY WHEN INFORMED BREAKFAST IS NOT FOR SEVERAL HOURS. SECURITY CALLED AND PT INDEPENDENTLY HELPED SELF UP AND BACK TO HER ROOM PRIOR TO THEIR ARRIVAL.
--- NOTE | 2020-10-12 04:36 | NUR ---
PT PACING, CYING. STATING SHE WANTS TO BE DISCHARGED. PT REDIRECTED TO ROOM AND REORIENTED TO SITUATION.
[2020-10-12] MEDS ORDERED: LORazepam 2 MG/ML, 1ML ONE ×2 (05:56→23:24)
[2020-10-12] MEDS: LORazepam 2 MG/ML, 1ML IM PRN (05:59)
--- NOTE | 2020-10-12 06:34 | NUR ---
PT CONTINUES TO LEAVE ROOM AND ATTEMPTING TO HUG VARIOUS STAFF MEMBERS. PT APPEARS TO BE AGGITATED AT TIMES, CRYING AND YELLING INTERMITTANTLY. PT WILL NOT STAY IN HER ROOM. PT MEDICATED FOR ANXIETY/AGGITIATION PER EMAR WITH IM ATIVAN.
--- NOTE | 2020-10-12 06:56 | NUR ---
REPORT TO ALVAREZ IZAGUIRRE
--- NOTE | 2020-10-12 07:00 | NUR ---
REPORT TAKEN FROM ALVAREZ ALCALA. PT IS AWAKE, ALERT, PACING IN ROOM AND SPEAKING WITH SITTER. GAIT STEADY. ROOM SECURE. CARE ASSUMED AT THIS TIME.
--- NOTE | 2020-10-12 07:40 | NUR ---
SNACK PROVIDED AT PATIENT REQUEST, PT TOLERATING WELL. COOPERATIVE AT THIS TIME.
--- NOTE | 2020-10-12 07:53 | NUR ---
THROUGH PUT RN: RECEIVED CALL FROM [facility], PT MAY BE ACCEPTED TODAY. THEY WILL CALL BACK LATER.
--- NOTE | 2020-10-12 08:45 | NUR ---
RESPIRIDONE 1 MG REQUESTED FROM PHARMACY, NOT IN ED OMNICELL.
[2020-10-12] MEDS: RISPERIDONE 1 MG TABLET PO SCH (09:30)
--- NOTE | 2020-10-12 09:39 | NUR ---
pt medicated per emar, tolerated well. pt a&o, resps even and unlabored, pt denies pain. pt denies any phsycial complaint, states she is voiding and stooling normally today. gait steady, SI meal tray given, consumed 100% without difficulty. pt updated with POC. room remains secure. sitter monitoring from bedside for safety.
--- NOTE | 2020-10-12 11:30 | NUR ---
pt sleeping on bed, resps even and unlabored. room remains secure. sitter monitoring from hallway for safety.
--- NOTE | 2020-10-12 12:19 | NUR ---
PT SLEEPING ON BED, RESPS EVEN AND UNLABORED, NADN. SITTER MONITORING FROM HALLWAY FOR SAFETY. ROOM SECURE.
--- NOTE | 2020-10-12 12:38 | NUR ---
pt up to bathroom with sitter accompanying, pt awake, alert, resps even and unlabored. gait steady. nadn.
--- NOTE | 2020-10-12 13:20 | NUR ---
SI lunch tray delivered. pt a&o, resps even and unlabored. sitter monitoring from community health for safety. room secure.
--- NOTE | 2020-10-12 15:50 | NUR ---
pt showered with sitter assist, new gown, mesh underwear and socks provided. now back in bed. pt a&o, resps even and unlabored, nadn. report given to tho michaels.
--- NOTE | 2020-10-12 15:53 | NUR ---
BREAK RN: PT RESTING IN ROOM. SITTER AT DOOR. NO ACUTE DISTRESS NOTED. WILL CONTINUE TO MONITOR WHILE PRIMARY RN IS ON BREAK.
--- NOTE | 2020-10-12 16:01 | NUR ---
THROUGHPUT RN: CALL TO [facility], SPOKE WITH EUGENIO, ASKED ABOUT ACCEPTANCE OF PT "WE ARE FULL AT THIS TIME" SCARLETT LAUREN NOTIFIED.
--- NOTE | 2020-10-12 16:41 | NUR ---
REPORT GIVEN TO ALVAREZ IZAGUIRRE
--- NOTE | 2020-10-12 17:00 | NUR ---
at bedside, pt is cheerful conversing with . room secure. sitter monitoring from hallway for safety.
--- NOTE | 2020-10-12 18:50 | NUR ---
pt had query syncopal event witnessed by and psych grain elevator operator nelson, pt was sitting at the time and did not sustain an injury. after event, pt a&o to baseline, neurologically intact. vs performed (see EMR for 1845), EKG taken and reviewed by GWENDOLYN Damico. MD Damico and CLARE Fisher notified. instructed RN to place pt on manager cardiac, pt placed on manager cardiac,pt is sinus tach rate 110s with no ectopy. bp and spo2 monitors also in place .sitter remains for safety. no further orders received.
--- NOTE | 2020-10-12 19:00 | NUR ---
report at bedside to ALVAREZ Martino, pt a&o, resps even and unlabored. sinus tach rate 110's with no ectopy. no change in status.
[2020-10-12] MEDS ORDERED: HALOPERIDOL 5 MG/ML ONE (22:52)
[2020-10-12] MEDS ORDERED: RISPERIDONE 2 MG TABLET ONE (22:52)
[2020-10-12] MEDS: HALOPERIDOL 5 MG/ML IM PRN (22:56)
[2020-10-12] MEDS: RISPERIDONE 2 MG TABLET PO SCH (22:56)
--- NOTE | 2020-10-12 23:08 | NUR ---
PT BECOMING INCREASINGLY RESTLESS, PACING IN HER ROOM AND CONTINUING TO WALK INTO THE HALLWAY. PT WAS INFORMED THAT SHE NEEDS TO STAY IN HER ROOM. PT NOT ABLE TO FOLLOW THESE INSTRUCTIONS. PT MEDICATED WITH PRN MEDICATION PER EMAR.
--- NOTE | 2020-10-12 23:29 | NUR ---
PT AGAIN TRIED TO ELOPE. PT LAYING IN BED CRYING.
[2020-10-12] MEDS ORDERED: LORazepam 2 MG/ML, 1ML IM ONE (23:30)
[2020-10-12] MEDS ORDERED: DIPHENHYDRAMINE 50 MG/ML, 1ML IM ONE (23:30)
--- NOTE | 2020-10-13 00:30 | NUR ---
PT RESTING ON HOSPITAL BED. RESPIRATIONS EVEN AND UNLABORED. SITTER AT DOORWAY FOR FREQUENT CHECKS.
--- NOTE | 2020-10-13 01:30 | NUR ---
REPORT TO ALVAREZ BLAIR
--- NOTE | 2020-10-13 02:34 | NUR ---
PT RESTING ON HOSPITAL BED NO NEEDS AT THIS TIME, SITTER REMAINS FOR SAFETY
--- NOTE | 2020-10-13 03:23 | NUR ---
PT RESTING ON HOSPITAL BED NO NEEDS AT THIS TIME, SITTER REMAINS FOR SAFETY
--- NOTE | 2020-10-13 04:30 | NUR ---
PT RESTING ON HOSPITAL BED, SITTER IN SIGHT FOR SAFETY, RESP EVEN AND UNLABORED
--- NOTE | 2020-10-13 07:11 | NUR ---
Assumed care. Pt resting calmly in bed. Pt free of harm. Sitter outside room. Will monitor.
[2020-10-13] MEDS ORDERED: LORazepam 1MG TABLET ONE (08:36)
--- NOTE | 2020-10-13 08:46 | NUR ---
Pt awake, A&O, steady on feet, ambulated to BR and around room with no difficulty. Pt provided meal try and ate 100%. Pt with stable VS. Pt with no distress. Pt free of harm, sitter outside room. Warm blanket given and pt back to bed. Pt medicated per order. Will continue to monitor.
[2020-10-13] MEDS: RISPERIDONE 1 MG TABLET PO SCH ×2 (09:00→19:59)
[2020-10-13] MEDS ORDERED: LORazepam 1MG TABLET PO ONE (09:00)
[2020-10-13] MEDS ORDERED: RISPERIDONE 2 MG TABLET ONE (09:18)
--- NOTE | 2020-10-13 10:19 | NUR ---
Pt calm in bed, resting, no changes. Pt free of harm. Sitter outside room. Will continue to monitor.
--- NOTE | 2020-10-13 12:12 | NUR ---
Pt remains calm at this time. Pt out of bed at times, but easily re-directable back to bed. Snacks and fluids given. Pt ambulatory to BR without incident. Will continue to monitor. Sitter outside room. Pt free of harm.
--- NOTE | 2020-10-13 14:58 | NUR ---
Pt calm in bed. Free of harm. Sitter outside room. Will continue to monitor. Pt with stable VS.
[2020-10-13] MEDS ORDERED: HALOPERIDOL 5 MG/ML ONE (15:57)
--- NOTE | 2020-10-13 16:01 | NUR ---
Sheila RN note: Pt in hallway, crying, refusing to return to room. Mis LOCKHART able to talk pt into going to her room. Pt medicated with Haldol IM per order. Room secured, sitter within eyesight of pt.
[2020-10-13] MEDS: HALOPERIDOL 5 MG/ML IM PRN (16:03)
--- NOTE | 2020-10-13 16:29 | NUR ---
Pt more calm. Pt taken to shower with sitter and given a shower. Pt more calm and cooperative at this time. Pt free of harm. Will continue to monitor.
--- NOTE | 2020-10-13 17:15 | NUR ---
at bedside. Awaiting re-eval. Will continue to monitor.
--- NOTE | 2020-10-13 18:22 | NUR ---
Pt anxious, tearful. Pt needs frequent re-directing back to room. remains at bedside attempting to calm patient. Sitter remains busy with patient. refusing to take pt home at this time. Pt remains free of harm. Will continue to monitor.
--- NOTE | 2020-10-13 18:32 | NUR ---
Dinner try provided. Pt in bed, eating dinner at this time. Sitter reamains at bedside. Pt remains free of harm at this time.
--- NOTE | 2020-10-13 19:01 | NUR ---
report received from off going RN. pt awake and alert, and ambulatory. is a little agitated at the moment and wants to leave the hospital. pt re-oriented to room after she walked to the charge nurse station, and her sitter is following her and trying to get her in her room. pt states that her child is in the streets and "they're" gonna hurt her. pt reoriented again, and is back in room. MD advised, to see if there is medication that we can provide to make the pt comfortable.
--- NOTE | 2020-10-13 19:39 | NUR ---
med request sent to pharmacy for meds to be given early, per Dr. Boyd order
--- NOTE | 2020-10-13 20:02 | NUR ---
PT COMES OUT OF ROOM AND STATES SHE IS ANXIOUS. MEDS GIVEN TO PT AND SHE HAS BEEN REORIENTED. PT ASKED IF SHE COULD WALK. PT GIVEN SPECIFIC SPOT OUTSIDE OF ROOM, NEXT TO HER SITTER WHERE SHE CAN WALK AND GET SOME EXERCISE. SHE IS UNDER CONSTANT VISUALIZATION FROM THE SITTER, AND PT COOPERATING AND WALKING IN THE ALLOTED SPACE, PT ALSO KNOWS SHE IS ON A LEGAL HOLD.
--- NOTE | 2020-10-13 23:22 | NUR ---
PT SLEEPING COMFORTABLY IN BED. SITTER AT DOOR WITH EYES ON. NO ACUTE DISTRESS AT THIS TIME.
--- NOTE | 2020-10-14 00:59 | NUR ---
Pt up walking around, asking for food. Primary Rn Jose lizama.
--- NOTE | 2020-10-14 02:25 | NUR ---
PT WOKE UP AND PACING IN ROOM. PT ESCORTED TO BATHROOM, AND THEN WALKED BACK TO ROOM. PT IS NOW RESTING AND SLEEPING IN BED.
[2020-10-14] MEDS ORDERED: HALOPERIDOL 5 MG/ML ONE (02:53)
[2020-10-14] MEDS: HALOPERIDOL 5 MG/ML IM PRN (03:10)
--- NOTE | 2020-10-14 03:15 | NUR ---
PT WOKE UP AGAIN AND TRYING TO WALK AROUND THE UNIT AND SAYING SHE NEEDS TO GO HOME. PT REORIENTED TO HER BEING ON A LEGAL HOLD. PT WALKED BACK INTO ROOM. PT MEDICATED PER EMAR, AND WAS HAPPY TO BE MEDICATED AND WAS THANKFUL. SITTER REMAINS OUTSIDE DOORWAY AND ALERTS RN WHEN PT WALKS OUT AND ALSO ATTEMPTS TO REORIENT PT BACK TO HER ROOM.
--- NOTE | 2020-10-14 04:59 | NUR ---
pt in no acute distress. resting comfortably in bed asleep with siderails up x2 and call light within reach. pt has a sitter outside her door with eyes on pt.
--- NOTE | 2020-10-14 06:22 | NUR ---
pt awake and calm, and walking in room. pt allowed to walk a section of the hallway in front of her room for a period of time to make pt more calm as she says she just needs to walk around a little to feel better. pt following instructions to not leave area, and sitter at doorway and observing pt. no acute distress
--- NOTE | 2020-10-14 06:49 | NUR ---
REPORT AND CARE TO DAY SHIFT RN
--- NOTE | 2020-10-14 06:50 | NUR ---
Pt care assumed, pt assessed and VS reassessed. doughnut batter mixer RN, Jsoe, states he had an agreement with pt to allow her to pace back and forth in the hallway from the sitter to the wall and back a few times during the shift with good compliance from pt. Pt notified that I would honor the same agreement and set boundary and consequence of no longer being able to walk the hallway if she deviates from the boundary. Pt agreed to this proposal and we walked back and forth together for approximately 5 minutes before having pt go back into her room. Pt has disorganized thought pattern and cannot converse logically at this time. Pt does state she is hungry when asked and breakfast tray ordered.
--- NOTE | 2020-10-14 07:20 | NUR ---
Pt wanting to eat, states understanding that we are awaiting tray delivery. Pt wandering hallway in precribed/agreed upon area for a few minutes before returning to her room. Pt making air crosses at each sitter, this RN, and stocking cart that chemical waste management technician rolled into area.
[2020-10-14] MEDS ORDERED: ACETAMINOPHEN 325 MG TABLET PO ONE (08:00)
[2020-10-14] MEDS ORDERED: ACETAMINOPHEN 325 MG TABLET ONE (08:04)
[2020-10-14] MEDS: RISPERIDONE 1 MG TABLET PO SCH ×2 (08:08→22:44)
--- NOTE | 2020-10-14 08:09 | NUR ---
Pt ate 100% of breakfast tray. Found lying on bed crying stating she has a lot of pain and pointing to her vagina. Made a throbbing fist to indicate what it feels like. Pt asked if she was starting her period and she states she does not have periods. Dr. Stanford notified, orders received for Tylenol, and pt medicated for pain at this time as well as giving her AM Risperdone scheduled for 0900.
--- NOTE | 2020-10-14 09:00 | NUR ---
Pt pacing in room with occassional pacing in agreed upon area. VS reassessed with noted elevated HR and pain resolved after medications. Pt states she still feels hungry and would like a shower.
--- NOTE | 2020-10-14 09:30 | NUR ---
Pt taken to shower room in ED (32) after notification of security and charge attendant. Pt tearful due to slow changes in shower temperature from very cold to hot back to cool. Pt provided items with which to brush her teeth and comb her hair while there as well. All items returned to RN and placed into a lab bag to keep for future use and left with sitter. Pt lost an earring in her room which was subsequently found again and placed back in her ear after cleaning it with alcohol. Pt continues to be easily redirected but very restless pacing in isaac and her room.
--- NOTE | 2020-10-14 10:27 | NUR ---
Pt up pacing, went to the restroom. Sitter present to monitor 1:1 as required for safety.
[2020-10-14] MEDS ORDERED: IBUPROFEN 600 MG TABLET ONE (11:15)
--- NOTE | 2020-10-14 11:17 | NUR ---
Pt came out of bathroom, bent over and crying pointing to vaginal area and stating she is in pain. Asked pt again if she was on her period and she states no. Asked if she is bleeding and she said no. Dr. Stanford notified and order for Ibuprofen received and given at this time. Pt continues to pace through prescribed area of hallway and room constantly.
[2020-10-14] MEDS ORDERED: IBUPROFEN 200 MG TABLET PO ONE (11:30)
--- NOTE | 2020-10-14 12:31 | NUR ---
Pt asked to remain in her room due to increased traffic in hallway and at discharge desk. Pt compliant and cooperative but laughing out loud randomly by herself in the room and when she was still in the hallway. Pt not able to state what is funny. Pt ate 100% of lunch tray.
--- NOTE | 2020-10-14 13:30 | NUR ---
Pt crying and very upset by a secondary psych patient that is escalated, combative and yelling in view and directly across the isaac from her room. Pt escorted to room 5 with 1:1 sitter and given verbal comfort in Kiswahili and Spanish both with noteable effect. Pt told she needs to stay in room for now and cannot be allowed to leave the room for awhile. Pt nodded in understanding.
--- NOTE | 2020-10-14 14:05 | NUR ---
Report given to ALVAREZ Jay and care transferred for meal break period.
--- NOTE | 2020-10-14 14:40 | NUR ---
Pt care reassumed from ALVAREZ Jay. Pt moved from room 5 to Room 1 while this RN was on break with continued 1:1 sitter use. Pt is noted to be calm, lying on bed at this time.
--- NOTE | 2020-10-14 15:50 | NUR ---
Pt dry heaving in room. Sitter states she has been doing this off and on for the last hour with no emesis coming up. Pt then ambulatory to restroom and back to room without incident.
--- NOTE | 2020-10-14 16:27 | NUR ---
Pt walked into restroom with emesis bag. As sitter attempted to stop her, pt began yelling 'Money, money, money" at her and closed the door and held it shut. Unable to open door and pt states she is using the bathroom with toilet flushing in the background.
--- NOTE | 2020-10-14 16:30 | NUR ---
Pt walked back into her room and slammed the door. Provided grahm crackers and water for c/o hunger with some effect in behavior noted. notified of escalating aggression. Orders for Ativan PO requested and received.
[2020-10-14] MEDS ORDERED: LORazepam 1MG TABLET ONE (16:32)
--- NOTE | 2020-10-14 16:40 | NUR ---
Pt did take Ativan offered and is remaining in her room at this time.
[2020-10-14] MEDS ORDERED: LORazepam 1MG TABLET PO ONE (17:00)
--- NOTE | 2020-10-14 17:06 | NUR ---
Dinner tray brought into pt room and pt assisted with call light/TV remote in room.
--- NOTE | 2020-10-14 18:22 | NUR ---
Pt resting in room, sleeping in bed and calm at this roxy. NAD (no acute distress) noted at this time. 1:1 observation sitter present outside doorway.
--- NOTE | 2020-10-14 18:50 | NUR ---
Report given to ALVAREZ Hinojosa and care transferred. Pt resting in bed with new blankets provided as per her request.
--- NOTE | 2020-10-14 19:10 | NUR ---
REPORT FROM [facility] TRANSFER OF CARE AT THIS TIME. PT RESTING ON HOSPITAL BED PROVIDED WITH BLANKETS
--- NOTE | 2020-10-14 19:19 | NUR ---
Note servando in EDM - 10/14/20 at 1921 by [email or web address] Pt with normal vitals, abd pain sharp, getting worst the last 3 days. Hooked up to bp, pulse ox, call light with in reach.
--- NOTE | 2020-10-14 20:13 | NUR ---
PT RESTING QUIETLY ON BED, NO NEEDS AT THIS TIME SITTER IN SIGHT
--- NOTE | 2020-10-14 21:02 | NUR ---
PT CONTINUES TO REST ON BED SITTER IN SIGHT FOR SAFETY
--- NOTE | 2020-10-14 22:20 | NUR ---
PT UP TO RESTROOM STEADY GAIT SITTER REMAINS FOR SAFETY
[2020-10-14] MEDS ORDERED: RISPERIDONE 2 MG TABLET ONE (22:41)
--- NOTE | 2020-10-14 22:44 | NUR ---
PT MEDICATED PER SEP. NOW BACK TO BED. SITTER IN SIGHT
--- NOTE | 2020-10-14 23:25 | NUR ---
PT RESTING ON BED, NADN, SITTER IN SIGHT NO NEEDS AT THIS TIME
--- NOTE | 2020-10-15 00:32 | NUR ---
PT RESTING CALMLY ON GURNEY, NADN RESP EVEN AND UNLABORED SITTER IN SIGHT FOR SAFETY
--- NOTE | 2020-10-15 01:11 | NUR ---
PT RESTING ON HOSPITAL BED NADN SITTER IN SIGHT NO NEEDS AT THIS TIME.
--- NOTE | 2020-10-15 01:35 | NUR ---
PT RESTING ON HOSP BED, NO NEEDS AT THIS TIME. SITTER AT BEDSIDE.
--- NOTE | 2020-10-15 02:41 | NUR ---
PT UP REQ SNACKS AND MILK. BOTH PROVIDED REQUESTED NO OTHER NEEDS AT THIS TIME. SITTER REMAINS IN SIGHT FOR SAFETY AND REDIRECTION.
--- NOTE | 2020-10-15 03:11 | NUR ---
PT NOW PACING IN ROOM SCREAMING AND CRYING. SITTER REDIRECTING PT WITH SOME SUCCESS.
--- NOTE | 2020-10-15 03:18 | NUR ---
PT SCREAMING AND NO LONGER REDIRECTABLE.
[2020-10-15] MEDS ORDERED: DIPHENHYDRAMINE 50 MG/ML, 1ML ONE (03:19)
[2020-10-15] MEDS ORDERED: LORazepam 2 MG/ML, 1ML ONE (03:19)
[2020-10-15] MEDS: LORazepam 2 MG/ML, 1ML IM STA ×2 (03:23→05:28)
[2020-10-15] MEDS: DIPHENHYDRAMINE 50 MG/ML, 1ML IM ONE ×2 (03:23→05:27)
--- NOTE | 2020-10-15 03:28 | NUR ---
PT NOW RESTING BACK IN BED WHEN RN ATTEMPTED TO MEDICATE. MEDICATIONS HELD FOR TIME BEING
--- NOTE | 2020-10-15 04:45 | NUR ---
PT RESTING ON HOSPITAL BED NADN SITTER IN SIGHT NO NEEDS AT THIS TIME.
--- NOTE | 2020-10-15 05:26 | NUR ---
PT OUT OF ROOM SHOUTING AT [facility] REQ MONEY AND FOOD AND VASELINE. PT INCREASINGLY AGGITATED DESPITE SNACKS BEING PROVIDED. PT MEDICATED PER MAR FOR THIS REASON.
--- NOTE | 2020-10-15 06:05 | NUR ---
PT NOW RESTING ON HOSPITAL BED CALMLY
--- NOTE | 2020-10-15 06:56 | NUR ---
Report from Micaela PINO. Pt resting in bed with eyes closed, resp even and unlabored, NADN. Room remains secured, sitter within eyesight of pt. All safety measures observed.
--- NOTE | 2020-10-15 06:58 | NUR ---
Meal tray ordered for pt.
[2020-10-15 08:14] VITALS: BP 98/74
--- NOTE | 2020-10-15 08:15 | NUR ---
Pt provided breakfast tray with SI precautions observed. Pt denies other needs.
--- NOTE | 2020-10-15 08:33 | NUR ---
Report called to Leighton PINO at [facility].
--- NOTE | 2020-10-15 09:03 | NUR ---
Pt resting in bed with eyes closed, resp even and unlabored, NADN.
== END 2020-10-15 10:08 ==
LOC: ED 10-10 00:08
DX: F23 Brief psychotic disorder (principal); N30.00 Acute cystitis without hematuria; R73.9 Hyperglycemia, unspecified; R41.82 Altered mental status, unspecified; R94.31 Abnormal electrocardiogram [ECG] [EKG]; R10.30 Lower abdominal pain, unspecified
CPT/HCPCS: 36415; 80053; 80143; 80179; 80307; 80320; 81001; 82962; 83690; 84703; 85025; 87077; 87086; 87186; 93005; 96372; 99285; J1200; J1630; J2060; J3486; Q0162; 80299; 80329; G0480

== ENCOUNTER 2020-12-27 11:13 | Emergency (ER) | payer OTHER ==
[~2020-12-27] VITALS: Ht 167.6 cm; Wt 75.0 kg
--- NOTE | 2020-12-27 11:46 | NUR ---
ROOM SECURED, GARAGE DOOR UP TO ALLOW PT TO BE ON MONITOR. HEART MONITOR, BP CUFF, PULSE OX IN PLACE. IV STARTED, LABS DRAWN WITH START. PT AWARE OF NEED FOR URINE SPECIMEN. PT UNDRESSED AND PLACED IN GOWN, ALL BELONGINGS TO LOCKER, BELONGING LIST COMPLETED. PT STATES SHE HAS BEEN REFUSING INSULIN B/C "I DON'T HAVE DIABETES ANYMORE". PT ALERT, ORIENTED TO PERSON, PLACE BUT DOES NOT APPEAR TO UNDERSTAND SITUATION FOR HOSPITALIZATION. PT ANSWERS SOME QUESTIONS, SPEAKS OUT INAPPROPRIATELY OTHER TIMES IN WOLOF. SITTER AT DOORWAY.
[2020-12-27 11:50] LABS: BASOPHILS % (AUTO) 1 % (0-1); EOSINOPHILS % (AUTO) 1 % (1-7); LYMPHOCYTES % (AUTO) 10 % (22-44); MEAN CORPUSCULAR HEMOGLOBIN 24.4 pg (27.0-34.8); MEAN CORPUSCULAR HGB CONC 32.9 g/dL (32.4-35.8); MONOCYTES % (AUTO) 5 % (2-9); NEUTROPHILS % (AUTO) 82 % (42-75); PLATELET COUNT 408 x10^3/uL (130-400); RED CELL DISTRIBUTION WIDTH 17.9 % (9.6-15.2)
[2020-12-27] MEDS ORDERED: ONDANSETRON 2MG/ML, 2ML ONE (11:56)
[2020-12-27] MEDS ORDERED: SODIUM CHLORIDE 0.9% 1,000ML IVBOLUS ONE (12:00)
[2020-12-27] MEDS ORDERED: ONDANSETRON 2MG/ML, 2ML IVPush ONE (12:00)
[2020-12-27] MEDS ORDERED: SODIUM CHLORIDE FLUSH 10ML SYR IVF ONE (12:00)
[2020-12-27 12:01] LABS: ALANINE AMINOTRANSFERASE 32 U/L (12-78); ALBUMIN 3.3 g/dL (3.4-5.0); ANION GAP 9 mmol/L (5-15); CALCIUM 8.8 mg/dL (8.5-10.1); CHLORIDE 106 mmol/L (98-107)
[2020-12-27 12:04] LABS: ALKALINE PHOSPHATASE 104 U/L (45-117); BILIRUBIN,TOTAL 0.4 mg/dL (0.2-1.0); CREATININE 0.79 mg/dL (0.55-1.02); TOTAL PROTEIN 7.8 g/dL (6.4-8.2)
[2020-12-27 12:40] LABS: HCG UR SG 1.033 (1.003-1.030)
[2020-12-27 12:41] LABS: MICROSCOPIC INDICATED
--- NOTE | 2020-12-27 13:23 | NUR ---
REPORT TO JULIANNE, TRANSFER OF CARE AT THIS TIME.
--- NOTE | 2020-12-27 13:30 | NUR ---
PT PROVIDED W/ SAFETY LUNCH TRAY.
--- NOTE | 2020-12-27 14:02 | NUR ---
PT RESTING ON GURNEY W/ GARAGE DOORS DOWN AND SITTER OUTSIDE ROOM FOR SAFETY.
--- NOTE | 2020-12-27 14:08 | NUR ---
PER MIGDALIA SY WHO IS ACTING PSA, PT REMOVED IV HERSELF. CHANGED INTO NEW GOWN.
--- NOTE | 2020-12-27 14:26 | NUR ---
SPOKE W/ WESTON PINO FROM [facility], UPDATED THAT PT IS MEDICALLY CLEARED. STATES SHE WILL VERIFY W/ THAT THEY ARE ABLE TO TAKE PT BACK.
--- NOTE | 2020-12-27 15:00 | NUR ---
BREAK RN: SPOKE WITH NO AT [facility] REGARDING PT. [facility] ADVISES THIS RN THEY ARE UNWILLING TO ACCEPT PT BACK UNTIL ALL LABS AND MEDICATIONS ARE REVIEWED BY INCIDENT RESPONSE SPECIALIST. ALL REQUESTED PAPERWORK SENT AND FACILITY NOTIFIED OF FAX. FACILITY WAS ALSO NOTIFIED AT THIS TIME THAT THE PT WAS SENT TO THIS FACILITY WITHOUT A COBRA FORM AND LEGAL HOLD. NO ASKED THIS RN IF WE COULD LOCATE IT AND THIS RN ADVISED THEY WERE THE LAST INDIVIDUALS TO HAVE SEEN IT THEY SHOULD BE THE FACILITY TO TRACK IT DOWN.
--- NOTE | 2020-12-27 17:12 | NUR ---
PER CASEY PINO OKAY TO TRANSFER PT BACK TO [facility].
--- NOTE | 2020-12-27 17:35 | NUR ---
THROUGHPUT: [facility] TO TRANSPORT PT TO [facility] @ ~1830 PER MILADIS, PRIMARY RN AWARE.
--- NOTE | 2020-12-27 17:59 | NUR ---
PER TP RN, TRANSPORT ARRANGED FOR 1829.
--- NOTE | 2020-12-27 19:05 | NUR ---
RECEIVED REPORT FROM JULIANNE PINO, TRANSFER OF CARE.
--- NOTE | 2020-12-27 19:21 | NUR ---
PT SITTING ON BED. TALKING TO HERSELF AND LAUGHING. GIVEN SOCKS FOR COMFORT. NADN. BREATHING EVEN AND UNLABORED. SITTER OUTSIDE ROOM FOR SAFETY MONITORING. GARAGE DOORS CLOSED. PERSONAL BELONGINGS LOCKED IN LOCKER. WAITING TRANSPORT TO [facility].
[2020-12-27 20:57] VITALS: BP 132/81
== END 2020-12-27 13:16 ==
LOC: ED 13:00
DX: R11.2 Nausea with vomiting, unspecified (principal); E11.65 Type 2 diabetes mellitus with hyperglycemia
CPT/HCPCS: 36415; 80053; 81001; 81025; 83690; 85025; 87086; 96360; 99283; J7030

== ENCOUNTER 2021-01-16 12:08 | Inpatient (IN) | payer OTHER ==
[~2021-01-16] VITALS: Ht 167.6 cm; Wt 99.0 kg
--- NOTE | 2021-01-16 12:21 | NUR ---
PT BIB [facility]PT AT [facility] WHERE SHE IS A LEGAL HOLD FOR MANAGER FIBER. SHE IS ALERT AND ORIENTED X3 (NOT NAME, ). SHE HAS BEEN RUNNING LOW GRADE FEVER FOR FEW DAYS, PAIN W/ URINATION. TODAY SHE HAS SOME SOB AND IN HIGH 80'S, [facility] SHOWED HER TO BE IN 90'S THE ENTIRE TIME. SHE HAS SOME DELUSIONS, AUDITORY HALLUCINATIONS BUT DENIES SI, HI. SHE HAS NOT BEEN COMPLIANT WITH MEDICATION. BLOOD SUGAR 396 PIV, 20G LFA STARTED, 200 NS IN SKIVER HAND. PT PLACED INTO GOWN, Addendum: 01/16/21 at 1313 by SAM PT BIB [facility]NA[facility]-PT AT [facility] WHERE SHE IS A LEGAL HOLD FOR HALF-WAY. SHE IS ALERT AND ORIENTED X3 (NOT NAME, ). SHE HAS BEEN RUNNING LOW GRADE FEVER FOR FEW DAYS, PAIN W/ URINATION. TODAY SHE HAS SOME SOB AND IN HIGH 80'S, [facility] SHOWED HER TO BE IN 90'S THE ENTIRE TIME. SHE HAS SOME DELUSIONS, AUDITORY HALLUCINATIONS BUT DENIES SI, HI. SHE HAS NOT BEEN COMPLIANT WITH MEDICATION. BLOOD SUGAR 396 PIV, 20G LFA STARTED, 200 NS IN SKIVER HAND. PT PLACED INTO GOWN, EKG COMPLETE, HOOKED TO MONITORS. CHRISTIANNE PINO CAME IN TO HELP W/ TRANSLATION PT SPEAKS ALBANIAN. PT REPORTS BLE PAIN D/T BEING HELD DOWN BY STAFF AT [facility] AND MIDBACK PAIN, "I WAS INJECTED 9 TIMES, THEY WANT TO KILL ME." PT DENIES SI/HI. WHEN ASKED ABOUT HALLUCINATIONS, "THEY ARE REAL VOICES. I CAN COMMUNICATE WITH YOU BOTH THROUGH MY MIND." WHEN ASKED ABOUT PMHX, SHE STATES SHE DOESN'T HAVE DM, "THEY PURIFIED MY BLOOD." WHEN ASKED TO REMOVE PANTS AND SHOES, PT WAS NONCOMPLIANT STATING, "IF MY SHOES GO ON SOMEONE ELSE I LOSE MY SOUL." "IF YOU TAKE OFF MY PANTS, I WILL ." SITTER OUTSIDE DOOR FOR SAFETY, 1 BAG OF PT BELONGING PLACED IN LOCKER. MD BEDSIDE.
[2021-01-16] MEDS ORDERED: SODIUM CHLORIDE 0.9% 1,000ML IVBOLUS ONE ×2 (13:00→15:00)
[2021-01-16] MEDS ORDERED: ACETAMINOPHEN 500 MG TABLET PO ONE (13:00)
--- NOTE | 2021-01-16 13:13 | NUR ---
DURING ASSESSMENT, WHEN ASKED HER , PT STATED, "I'M FROM 1800, BEFORE VENKAT."
--- NOTE | 2021-01-16 13:17 | NUR ---
IV BOLUS ADMINSTERED, PT COOPERATIVE.
[2021-01-16] MEDS ORDERED: ACETAMINOPHEN 500 MG TABLET ONE (13:18)
[2021-01-16 13:24] LABS: BASOPHILS % (AUTO) 0 % (0-1); EOSINOPHILS % (AUTO) 0 % (1-7); LYMPHOCYTES % (AUTO) 6 % (22-44); MEAN CORPUSCULAR HEMOGLOBIN 24.7 pg (27.0-34.8); MEAN CORPUSCULAR HGB CONC 32.6 g/dL (32.4-35.8); MEAN PLATELET VOLUME 8.3 fL (7.4-10.4); MONOCYTES % (AUTO) 9 % (2-9); NEUTROPHILS % (AUTO) 84 % (42-75); PLATELET COUNT 296 x10^3/uL (130-400); RED BLOOD COUNT 4.32 x10^6/uL (3.82-5.3); RED CELL DISTRIBUTION WIDTH 18.2 % (9.6-15.2)
--- NOTE | 2021-01-16 13:29 | NUR ---
CASE MANAGEMENT IS AWARE THAT PT IS HERE, NOTIFIED BY TASK RN GARRETT.
--- NOTE | 2021-01-16 13:30 | NUR ---
PT IS CURRENTLY REFUSING TYLENOL AND TO PROVIDE URINE SAMPLE. WILL GET AUTOMOTIVE SERVICES MANAGER PHONE TO BETTER COMMUNICATE.
[2021-01-16 13:32] LABS: ALBUMIN 2.6 g/dL (3.4-5.0); ANION GAP 17 mmol/L (5-15); CHLORIDE 97 mmol/L (98-107)
[2021-01-16 13:37] LABS: ALANINE AMINOTRANSFERASE 49 U/L (12-78); ALKALINE PHOSPHATASE 155 U/L (45-117); BILIRUBIN,TOTAL 0.7 mg/dL (0.2-1.0); CREATININE 1.08 mg/dL (0.55-1.02); TOTAL PROTEIN 8.4 g/dL (6.4-8.2)
--- NOTE | 2021-01-16 14:16 | NUR ---
RECEIVED UPDATE FROM ANANDA RN; ANANDA RN STATE NOTIFIED PT REFUSING TYLENOL. NO UA AT THIS TIME. Addendum: 01/16/21 at 1421 by SAM WAS ALSO AWARE PT NOT COOPERATIVE W/ UA
--- NOTE | 2021-01-16 14:34 | NUR ---
CM WITH PATIENT RIGHT NOW.
--- NOTE | 2021-01-16 14:42 | NUR ---
PT WALKED TO THE BATHROOM AND BACK W/O INCIDENT. STEADY GAIT. UA COLLECTED FROM CLEAN HAT AND SENT TO LAB.
--- NOTE | 2021-01-16 14:58 | NUR ---
PT TRIED PUSHING BY SITTER, SECURITY CALLED PT WAS EASILY DIRECTABLE AND SHE GOT BACK INTO BED. REATTACHED TO MONITOR, DOOR SHOOT W/ SITTER DIRECT LINE OF VISION. LAB ATTEMPTED TO OBTAIN ADDITIONAL LABS, DR. ORTA GOING BY AND HE STATED TO USE OTHER LAB FROM PREVIOUS DRAW AND HOLD OFF ON THE OTHER ONE.
[2021-01-16] MEDS ORDERED: PLEASE ENTER HEIGHT AND WEIGHT MC SCH (15:00)
[2021-01-16 15:08] LABS: ACETONE, SERUM Large (80mg/dL) (Negative)
[2021-01-16 15:08] LABS: MICROSCOPIC INDICATED
--- NOTE | 2021-01-16 15:39 | NUR ---
PT UNHOOKED HERSELF FROM IVF AND MONITORS, AND TOLD SITTER SHE NEEDED TO USE RESTROOM WHICH SITTER REMAINED W/ PT. PT RETURNED TO ROOM W/O INCIDENT.
--- NOTE | 2021-01-16 15:49 | NUR ---
PT REFUSED TO ALLOW THIS NURSE TO ATTACH PATIENT BACK TO IVF, AND MONITORS. SHE WAS ALSO OFFERED FOOD AND WATER WHICH SHE DENIED. DR. ORTA NOTIFIED OF THIS, AND THAT AT THIS TIME ONLY 1 BAG OF IVF HAS GONE IN. NO NEW ORDERS. CM HAS GOOD RAPPORT W/ PT AND PT WAS WILLING TO BE HOOKED BACK UP TO IVF.
--- NOTE | 2021-01-16 16:29 | NUR ---
PT UP TO RESTROOM, WILL ATTEMPT TO PLACE BACK ON MONITORS UPON RETURN AND INSERT PIV.
[2021-01-16] MEDS ORDERED: DOCUSATE 100 MG CAPSULE PO PRN (16:30)
[2021-01-16] MEDS ORDERED: POLYETHYLENE GLYCOL 17 GM PACKET PO PRN (16:30)
[2021-01-16] MEDS: SODIUM CHLORIDE 0.9% 1,000 ML IV SCH ×2 (16:30→21:32)
[2021-01-16] MEDS ORDERED: LABETALOL 5MG/ML, 20ML IVPush PRN (16:30)
[2021-01-16] MEDS: ENOXAPARIN 40 MG/0.4 ML SQ SCH (16:30)
[2021-01-16] MEDS ORDERED: BISACODYL 10 MG SUPP PR PRN (16:30)
[2021-01-16] MEDS ORDERED: LACTULOSE 10 GM/15 ML UDC PO PRN (16:30)
[2021-01-16] MEDS: CEFTRIAXONE 1,000 MG in DEXTROSE 5% 50 ML IVPB SCH (16:30)
[2021-01-16] MEDS ORDERED: ONDANSETRON 2MG/ML, 2ML IV PRN (16:30)
[2021-01-16] MEDS: D5%-0.45NACL+KCL 20MEQ 1,000 ML IV SCH (16:30)
[2021-01-16] MEDS ORDERED: CEFTRIAXONE 2 GM in DEXTROSE 5% 50 ML IVPB ONE (16:30)
--- NOTE | 2021-01-16 16:40 | NUR ---
PT BACK IN ROOM, SHE REFUSED TO BE REHOOKED UP TO VITAL MACHINE, EKG AND IVF. DR. QUIROZ WAS GOING TO CHECK IN ON PT AND NOTIFIED HIM OF PT REFUSAL. DINING ROOM CASHIER IS ALSO AWARE. UNABLE TO ADMINSTER MEDICATIONS, INSERT ADDITION IV AND LAB ARE UNCOMPLETE (BLOOD CULTURE).
--- NOTE | 2021-01-16 17:09 | NUR ---
EDTA ATTEMPTING TO GET PIV AT THIS TIME AND WILL TRY TO PUT MONITOR ON PT SO WE CAN OBTAIN MORE RECENT VS. BLUE WRIST BAND ALSO PLACED PT PRIMAIRLY IS JAPANESE SPEAKING.
--- NOTE | 2021-01-16 17:53 | NUR ---
PT ALLOWED ER RN TO PLACE BP, AND PULSE OX ON BUT NOT MONITOR.
--- NOTE | 2021-01-16 18:25 | NUR ---
DUE TO PT CONTINUED REFUSAL OF TX, CALLED [facility] DR. HARO AND UPDATED HIM. INFORMED HIM OF ATTEMPT OF TRYING TO TELL PT IT IS FOR THE BEST OF HER BABY AND SHE CONTINUES TO REFUSE. HE IS AWARE AND IS GOING TO SPEAK W/ PSYCH HE IS UNSURE OF WHAT HE CAN DO W/ THIS PT AND THEIR HOLD. ATTEMPTING TO HAVE ANOTHER RN GO IN AND GET BLOOD SUGAR AT THIS TIME AND TALK ABOUT INSULIN DRIP.
--- NOTE | 2021-01-16 18:32 | NUR ---
TASK RN: ATTEMPTED TO CHECK PT'S BS AND DISCUSS NEED FOR INSULIN GTT. PT STARTED SCREAMING IN ROOM STATING "YOU POKED ME HERE, YOU POKED ME THERE AND THERE. IT HURTS. I DON'T WANT IT I DON'T WANT IT". PT MOVED HER ARMS AWAY FROM THIS RN AND CONTINUED SCREAMING. ATTEMPTED TO EDUCATE PT ON NEED TO CHECK BS. PT CONTINUES TO SCREAM. THIS RN CALMED PT AND LEFT ROOM. SITTER REMAINS AT BEDSIDE. ROOM REMAINS SECURE.
--- NOTE | 2021-01-16 18:42 | NUR ---
PT ON LEGAL HOLD, PT WENT TO THE BATHROOM NOW IS REFUSING TO GO BACK TO ROOM, SECURITY PRESENT TO TRY AND GET PT BACK IN ROOM
[2021-01-16] MEDS ORDERED: ZIPRASIDONE 20 MG INJ IM ONE (18:52)
--- NOTE | 2021-01-16 18:52 | NUR ---
SBAR REPORT GIVEN TO NALLELY
[2021-01-16] MEDS: ZIPRASIDONE 20 MG INJ IM PRN (19:04)
[2021-01-16] MEDS: REGULAR INSULIN 100 UNITS in SODIUM CHLORIDE 0.9% 99 ML IV PRN ×2 (19:28→19:51)
--- NOTE | 2021-01-16 19:33 | NUR ---
PT GIVEN IM GEODON, PT NOW RELAXED AND LAYING IN BED, PT COMPLIANT WITH THIS RN, NS BOLUS STARTED, INSULIN DRIP STARTED AT 2UNTIS PER HOUR ESTELLE RN PRESENT TO CONFIRM, ALL NEEDS IN REACH, CALL LIGHT IN REACH, NAD, SITTER AT BEDSIDE
[2021-01-16 20:29] LABS: ANION GAP 16 mmol/L (5-15); CALCIUM 8.3 mg/dL (8.5-10.1); CHLORIDE 104 mmol/L (98-107); CREATININE 0.81 mg/dL (0.55-1.02)
[2021-01-16] MEDS: ZIPRASIDONE 40MG CAPSULE PO SCH (21:01)
[2021-01-16] MEDS: LORazepam 1MG TABLET PO SCH (21:03)
[2021-01-16] MEDS: CHLORDIAZEPOXIDE 25 MG CAPSULE PO SCH (21:03)
[2021-01-17] MEDS: D5%-0.45NACL+KCL 20MEQ 1,000 ML IV SCH ×2 (00:10→09:23)
[2021-01-17 00:37] LABS: ANION GAP 11 mmol/L (5-15); CALCIUM 8.2 mg/dL (8.5-10.1); CHLORIDE 108 mmol/L (98-107); CREATININE 0.77 mg/dL (0.55-1.02)
[2021-01-17] MEDS: SODIUM CHLORIDE 0.9% 1,000 ML IV SCH ×2 (02:47→07:30)
[2021-01-17] MEDS: ACETAMINOPHEN 325 MG TABLET PO PRN (03:05)
[2021-01-17] MEDS: ZIPRASIDONE 20 MG INJ IM PRN ×3 (04:34→19:03)
[2021-01-17] MEDS: LEVOTHYROXINE 50 MCG TABLET PO SCH (06:16)
[2021-01-17] MEDS ORDERED: POTASSIUM CHLORIDE 20 MEQ TAB.ER.PRT PO ONE (06:30)
[2021-01-17 07:40] LABS: BASOPHILS % (AUTO) 0 % (0-1); EOSINOPHILS % (AUTO) 1 % (1-7); LYMPHOCYTES % (AUTO) 6 % (22-44); MEAN CORPUSCULAR HEMOGLOBIN 24.7 pg (27.0-34.8); MEAN CORPUSCULAR HGB CONC 32.9 g/dL (32.4-35.8); MEAN PLATELET VOLUME 7.5 fL (7.4-10.4); MONOCYTES % (AUTO) 10 % (2-9); NEUTROPHILS % (AUTO) 83 % (42-75); PLATELET COUNT 294 x10^3/uL (130-400); RED CELL DISTRIBUTION WIDTH 18.7 % (9.6-15.2)
[2021-01-17 07:53] LABS: ANION GAP 8 mmol/L (5-15); CALCIUM 8.5 mg/dL (8.5-10.1); CHLORIDE 107 mmol/L (98-107); CREATININE 0.83 mg/dL (0.55-1.02)
[2021-01-17 08:17] LABS: ALBUMIN 2.2 g/dL (3.4-5.0); BILIRUBIN, DIRECT 0.4 mg/dL (0.1-0.2)
[2021-01-17 08:19] LABS: BILIRUBIN,INDIRECT 0.3 mg/dL (0.0-2.0); BILIRUBIN,TOTAL 0.7 mg/dL (0.2-1.0); TOTAL PROTEIN 7.6 g/dL (6.4-8.2)
[2021-01-17] MEDS: FLUOXETINE HCL 20 MG CAPSULE PO SCH (08:33)
[2021-01-17] MEDS: LORazepam 1MG TABLET PO SCH ×3 (08:33→21:00)
[2021-01-17] MEDS ORDERED: DEXTROSE 4 GM TAB.CHEW PO PRN (10:00)
[2021-01-17] MEDS ORDERED: GLUCAGON 1 MG IM PRN (10:00)
[2021-01-17] MEDS ORDERED: DEXTROSE 50%, 50ML SYRINGE IVPush PRN (10:00)
[2021-01-17] MEDS ORDERED: INSULIN GLARGINE 100 UNITS/ML, PEN SQ-INSULIN ONE (10:00)
[2021-01-17] MEDS ORDERED: POTASSIUM PHOSPHATE 44 MEQ in SODIUM CHLORIDE 0.9% 500 ML IV ONE (10:00)
[2021-01-17] MEDS: SODIUM CHLORIDE FLUSH 10ML SYR IVF SCH ×2 (10:32→21:00)
[2021-01-17] MEDS: LACTATED RINGERS 1,000 ML IV SCH (10:34)
[2021-01-17] MEDS: INSULIN LISPRO 100 UNITS/ML, PEN SQ-INSULIN SCH ×5 (11:45→21:00)
[2021-01-17 12:20] LABS: ANION GAP 10 mmol/L (5-15); CALCIUM 8.6 mg/dL (8.5-10.1); CHLORIDE 107 mmol/L (98-107); CREATININE 0.84 mg/dL (0.55-1.02)
[2021-01-17] MEDS: ENOXAPARIN 40 MG/0.4 ML SQ SCH (15:58)
[2021-01-17] MEDS: CEFTRIAXONE 1,000 MG in DEXTROSE 5% 50 ML IVPB SCH (15:59)
[2021-01-17 19:55] VITALS: BP 121/76
[2021-01-17] MEDS: INSULIN GLARGINE 100 UNITS/ML, PEN SQ-INSULIN SCH (21:00)
[2021-01-17] MEDS: ZIPRASIDONE 40MG CAPSULE PO SCH (21:00)
[2021-01-17] MEDS: CHLORDIAZEPOXIDE 25 MG CAPSULE PO SCH (21:00)
[2021-01-18 01:32] VITALS: BP 119/81
[2021-01-18] MEDS: LEVOTHYROXINE 50 MCG TABLET PO SCH (06:00)
[2021-01-18] MEDS: LACTATED RINGERS 1,000 ML IV SCH (06:00)
[2021-01-18] MEDS: INSULIN LISPRO 100 UNITS/ML, PEN SQ-INSULIN SCH ×7 (07:00→23:11)
[2021-01-18] MEDS: SODIUM CHLORIDE FLUSH 10ML SYR IVF SCH ×2 (09:00→23:16)
[2021-01-18] MEDS: FLUOXETINE HCL 20 MG CAPSULE PO SCH (09:00)
[2021-01-18] MEDS: LORazepam 1MG TABLET PO SCH ×3 (09:00→23:16)
[2021-01-18] MEDS: INSULIN GLARGINE 100 UNITS/ML, PEN SQ-INSULIN SCH ×2 (09:00→23:11)
[2021-01-18 14:40] VITALS: BP 95/63
[2021-01-18] MEDS: ENOXAPARIN 40 MG/0.4 ML SQ SCH (16:30)
[2021-01-18] MEDS: CEFTRIAXONE 1,000 MG in DEXTROSE 5% 50 ML IVPB SCH (16:30)
[2021-01-18] MEDS: ACETAMINOPHEN 325 MG TABLET PO PRN (18:13)
[2021-01-18 18:43] VITALS: BP 146/98
[2021-01-18] MEDS: ZIPRASIDONE 40MG CAPSULE PO SCH (23:15)
[2021-01-18] MEDS: CHLORDIAZEPOXIDE 25 MG CAPSULE PO SCH (23:15)
[2021-01-18] MEDS: CEPHALEXIN 500 MG CAPSULE PO SCH (23:18)
[2021-01-19 00:25] VITALS: BP 123/83
[2021-01-19] MEDS: LACTATED RINGERS 1,000 ML IV SCH ×2 (02:00→22:00)
[2021-01-19] MEDS: LEVOTHYROXINE 50 MCG TABLET PO SCH (05:26)
[2021-01-19 05:57] LABS: BASOPHILS % (AUTO) 1 % (0-1); EOSINOPHILS % (AUTO) 2 % (1-7); LYMPHOCYTES % (AUTO) 10 % (22-44); MEAN CORPUSCULAR HEMOGLOBIN 24.9 pg (27.0-34.8); MEAN CORPUSCULAR HGB CONC 33.9 g/dL (32.4-35.8); MEAN PLATELET VOLUME 7.7 fL (7.4-10.4); MONOCYTES % (AUTO) 8 % (2-9); NEUTROPHILS % (AUTO) 80 % (42-75); PLATELET COUNT 420 x10^3/uL (130-400); RED BLOOD COUNT 4.36 x10^6/uL (3.82-5.3); RED CELL DISTRIBUTION WIDTH 18.4 % (9.6-15.2)
[2021-01-19 06:11] LABS: ALANINE AMINOTRANSFERASE 67 U/L (12-78); ALBUMIN 2.4 g/dL (3.4-5.0); ANION GAP 9 mmol/L (5-15); CALCIUM 9.2 mg/dL (8.5-10.1); CHLORIDE 103 mmol/L (98-107); CREATININE 0.64 mg/dL (0.55-1.02)
[2021-01-19 06:13] LABS: ALKALINE PHOSPHATASE 169 U/L (45-117); BILIRUBIN,TOTAL 0.4 mg/dL (0.2-1.0); TOTAL PROTEIN 8.1 g/dL (6.4-8.2)
[2021-01-19] MEDS: INSULIN LISPRO 100 UNITS/ML, PEN SQ-INSULIN SCH ×7 (07:56→20:56)
[2021-01-19] MEDS: FLUOXETINE HCL 20 MG CAPSULE PO SCH (07:58)
[2021-01-19] MEDS: CEPHALEXIN 500 MG CAPSULE PO SCH ×2 (07:58→20:58)
[2021-01-19] MEDS: LORazepam 1MG TABLET PO SCH ×3 (07:59→20:57)
[2021-01-19] MEDS: SODIUM CHLORIDE FLUSH 10ML SYR IVF SCH ×2 (07:59→21:00)
[2021-01-19] MEDS: INSULIN GLARGINE 100 UNITS/ML, PEN SQ-INSULIN SCH ×2 (08:00→20:57)
[2021-01-19 10:06] VITALS: BP 118/81
[2021-01-19] MEDS ORDERED: FLUO20CA23 PO (12:06)
[2021-01-19] MEDS ORDERED: CHLO25CA9 PO (12:06)
[2021-01-19] MEDS ORDERED: ZIPR40CA2 PO (12:06)
[2021-01-19] MEDS ORDERED: DOCU-131 PO (12:06)
[2021-01-19] MEDS ORDERED: ZIPR20VI IM (12:06)
[2021-01-19] MEDS ORDERED: LORA-446 PO (12:06)
[2021-01-19] MEDS ORDERED: LEVO50TA PO (12:06)
[2021-01-19] MEDS ORDERED: INSU100I11 SQ-INSULIN ×2 (12:06)
[2021-01-19] MEDS ORDERED: INSU100I13 SQ-INSULIN (12:06)
[2021-01-19] MEDS ORDERED: CEPH-376 PO (12:06)
[2021-01-19 13:25] VITALS: BP 125/88
[2021-01-19] MEDS: ENOXAPARIN 40 MG/0.4 ML SQ SCH (16:30)
[2021-01-19 19:55] VITALS: BP 110/74
[2021-01-19] MEDS: CHLORDIAZEPOXIDE 25 MG CAPSULE PO SCH (20:54)
[2021-01-19] MEDS: ZIPRASIDONE 40MG CAPSULE PO SCH (20:55)
[2021-01-20 00:21] VITALS: BP 110/74
[2021-01-20] MEDS: LEVOTHYROXINE 50 MCG TABLET PO SCH (06:15)
[2021-01-20 07:38] VITALS: BP 112/81
[2021-01-20] MEDS: INSULIN LISPRO 100 UNITS/ML, PEN SQ-INSULIN SCH ×9 (08:58→20:21)
[2021-01-20] MEDS: CEPHALEXIN 500 MG CAPSULE PO SCH ×2 (08:59→20:17)
[2021-01-20] MEDS: LORazepam 1MG TABLET PO SCH ×3 (08:59→20:18)
[2021-01-20] MEDS: FLUOXETINE HCL 20 MG CAPSULE PO SCH (08:59)
[2021-01-20] MEDS: INSULIN GLARGINE 100 UNITS/ML, PEN SQ-INSULIN SCH ×2 (08:59→20:22)
[2021-01-20] MEDS: SODIUM CHLORIDE FLUSH 10ML SYR IVF SCH ×2 (09:00→20:18)
[2021-01-20 12:50] VITALS: BP 116/83
[2021-01-20] MEDS: ENOXAPARIN 40 MG/0.4 ML SQ SCH (16:30)
[2021-01-20] MEDS: LACTATED RINGERS 1,000 ML IV SCH (18:00)
[2021-01-20 19:47] VITALS: BP 122/89
[2021-01-20] MEDS: ZIPRASIDONE 40MG CAPSULE PO SCH (20:17)
[2021-01-20] MEDS: CHLORDIAZEPOXIDE 25 MG CAPSULE PO SCH (20:18)
[2021-01-21] MEDS: LEVOTHYROXINE 50 MCG TABLET PO SCH ×2 (06:00→06:21)
[2021-01-21 06:50] VITALS: BP 104/72
[2021-01-21] MEDS: SODIUM CHLORIDE FLUSH 10ML SYR IVF SCH ×2 (09:00→21:00)
[2021-01-21] MEDS: FLUOXETINE HCL 20 MG CAPSULE PO SCH (09:05)
[2021-01-21] MEDS: CEPHALEXIN 500 MG CAPSULE PO SCH ×2 (09:05→20:59)
[2021-01-21] MEDS: LORazepam 1MG TABLET PO SCH ×3 (09:05→20:58)
[2021-01-21] MEDS: INSULIN GLARGINE 100 UNITS/ML, PEN SQ-INSULIN SCH ×2 (09:07→21:01)
[2021-01-21] MEDS: INSULIN LISPRO 100 UNITS/ML, PEN SQ-INSULIN SCH ×7 (09:07→21:00)
[2021-01-21] MEDS: LACTATED RINGERS 1,000 ML IV SCH (10:03)
[2021-01-21 12:22] VITALS: BP 111/80
[2021-01-21] MEDS: ENOXAPARIN 40 MG/0.4 ML SQ SCH (15:40)
[2021-01-21 19:31] VITALS: BP 108/76
[2021-01-21] MEDS: CHLORDIAZEPOXIDE 25 MG CAPSULE PO SCH (20:59)
[2021-01-21] MEDS: ZIPRASIDONE 40MG CAPSULE PO SCH (20:59)
[2021-01-22 02:03] VITALS: BP 114/82
[2021-01-22] MEDS: LEVOTHYROXINE 50 MCG TABLET PO SCH (05:54)
[2021-01-22] MEDS: FLUOXETINE HCL 20 MG CAPSULE PO SCH (07:57)
[2021-01-22] MEDS: LORazepam 1MG TABLET PO SCH ×4 (07:57→23:00)
[2021-01-22] MEDS: CEPHALEXIN 500 MG CAPSULE PO SCH ×3 (07:57→23:01)
[2021-01-22] MEDS: INSULIN LISPRO 100 UNITS/ML, PEN SQ-INSULIN SCH ×7 (07:58→22:19)
[2021-01-22] MEDS: INSULIN GLARGINE 100 UNITS/ML, PEN SQ-INSULIN SCH ×2 (07:58→22:19)
[2021-01-22] MEDS: SODIUM CHLORIDE FLUSH 10ML SYR IVF SCH ×2 (09:00→22:32)
[2021-01-22] MEDS: LACTATED RINGERS 1,000 ML IV SCH (09:54)
[2021-01-22] MEDS ORDERED: INSU100I13 SQ-INSULIN (11:22)
[2021-01-22 13:18] VITALS: BP 110/72
[2021-01-22] MEDS: ENOXAPARIN 40 MG/0.4 ML SQ SCH (15:48)
[2021-01-22 18:57] VITALS: BP 121/83
[2021-01-22] MEDS: ZIPRASIDONE 40MG CAPSULE PO SCH ×2 (22:52→23:01)
[2021-01-22] MEDS: CHLORDIAZEPOXIDE 25 MG CAPSULE PO SCH (23:00)
[2021-01-23] MEDS: ZIPRASIDONE 20 MG INJ IM PRN (02:54)
[2021-01-23] MEDS: LACTATED RINGERS 1,000 ML IV SCH (05:24)
[2021-01-23] MEDS: LEVOTHYROXINE 50 MCG TABLET PO SCH (05:46)
[2021-01-23] MEDS: SODIUM CHLORIDE FLUSH 10ML SYR IVF SCH (09:00)
[2021-01-23] MEDS: LORazepam 1MG TABLET PO SCH (09:06)
[2021-01-23] MEDS: FLUOXETINE HCL 20 MG CAPSULE PO SCH (09:06)
[2021-01-23] MEDS: INSULIN LISPRO 100 UNITS/ML, PEN SQ-INSULIN SCH ×4 (09:08→11:00)
[2021-01-23] MEDS: INSULIN GLARGINE 100 UNITS/ML, PEN SQ-INSULIN SCH (09:08)
== END 2021-01-23 12:14 | DRG 638 ==
LOC: ED 14:01 → EDIP 16:18 → CCU 20:22 → 4EST 01-17 16:58
PROVIDERS: ADMIT Internal Medicine; ATTEND Internal Medicine
DX: E11.10 Type 2 diabetes mellitus with ketoacidosis without coma (principal); N10 Acute pyelonephritis; B96.20 Unspecified Escherichia coli [E. coli] as the cause of diseases classified elsewhere; B96.89 Other specified bacterial agents as the cause of diseases classified elsewhere; D50.0 Iron deficiency anemia secondary to blood loss (chronic); E03.9 Hypothyroidism, unspecified; E88.09 Other disorders of plasma-protein metabolism, not elsewhere classified; F20.9 Schizophrenia, unspecified; N92.0 Excessive and frequent menstruation with regular cycle; F32.9 Major depressive disorder, single episode, unspecified; R74.01 Elevation of levels of liver transaminase levels; R94.5 Abnormal results of liver function studies; Z79.899 Other long term (current) drug therapy; Z79.01 Long term (current) use of anticoagulants; Z78.1 Physical restraint status; Z91.14 Patient's other noncompliance with medication regimen; Z79.891 Long term (current) use of opiate analgesic; Z91.19 Patient's noncompliance with other medical treatment and regimen
CPT/HCPCS: 36415; 71045; 80048; 80053; 80076; 81001; 82010; 82962; 83036; 83605; 83690; 83735; 84100; 84145; 84443; 84703; 85025; 87040; 87077; 87081; 87086; 87186; 93005; 96360; 96361; 99291; G0378; J0696; J1650; J2405; J3486; J1815; J3480; J7030; J7040; J7120